=== PATIENT | male | born 1955 | race Caucasian/White ===

== ENCOUNTER 2020-05-02 17:20 | Emergency (ER) | payer MEDICAID, SELFPAY ==
[2020-05-02 17:47] VITALS: BMI 28.1
[2020-05-02 17:49] VITALS: BP 110/67; PULSE 93; RESP 18; TEMP 37.2; O2SAT 93
--- NOTE | 2020-05-02 18:00 | ED_ITS ---
HPI - General Adult General: Chief complaint: General Medical Stated complaint: VOMITING/HEADACHE Time Seen by Provider: 05/02/20 17:58 Source: patient Mode of arrival: ambulatory Limitations: no limitations History of Present Illness: HPI narrative: 64-year-old male patient comes in today with headache along with body aches and nausea since last night. Patient does report 2 episodes of emesis. Patient reports body aches. Patient does have a history of hypertension that he takes medication for. Patient appears mildly unwell. Patient denies any shortness of breath or chest pain. Associated symptoms: Reports headache(s), nausea and vomiting Review of Systems General: Reports: 10 or more systems reviewed and unremarkable except in HPI and below GI: Reports: nausea and vomiting Neuro: Reports: headache(s) Physical Exam Const: COMMON NORMALS: no acute distress and patient oriented x3 GENERAL APPEARANCE: cooperative HENMT: COMMON NORMALS: normocephalic, TM's normal bilaterally and Normal external nose present HEAD & SCALP: normal to inspection and normocephalic NOSE: Normal external nose present TYMPANIC MEMBRANE: TM's normal bilaterally MOUTH: Normal oral and palatal mucosa present THROAT: posterior oropharynx normal Eye: GENERAL EYE: appearance normal, both eyes and all related structures Neck/C-Spine: COMMON NORMALS: full ROM Lymph: LYMPHATIC: no lymphadenopathy noted Chest: COMMONS NORMALS: normal inspection of the chest Resp: COMMON NORMALS: normal respiratory effort EFFORT & INSPECTION: Yes able to speak in complete sentences Cardio: COMMON NORMALS: regular rate and regular rhythm RATE: regular rate RHYTHM: regular rhythm GI: COMMON NORMALS: Soft to palpation and non-tender PALPATION: Yes Soft to palpation : COMMON NORMALS: Yes no CVA tenderness BLADDER/KIDNEY EXAM: Yes no CVA tenderness Back/Pelvis: COMMON NORMALS: no CVA tenderness and thoracic and lumbar spine normal to inspection Extremity: COMMON NORMALS: normal to inspection and no pedal edema Neuro: COMMON NORMALS: patient oriented x3 and moves all extremities Psych: COMMON NORMALS: mental status grossly normal and cooperative Skin: COMMON NORMALS: no rashes or lesions noted GENERAL SKIN EXAM: no rashes or lesions noted Course Vital Signs: Vital signs: Vital Signs Temperature 99.0 F 05/02/20 17:49 Pulse Rate 82 05/02/20 19:51 Respiratory Rate 18 05/02/20 19:51 Blood Pressure 110/59 05/02/20 19:51 Pulse Oximetry 92 05/02/20 19:51 MDM - General Adult MDM Narrative: Medical decision making narrative: 64-year-old male comes in today with body aches, fever and chills for 2 days. Patient has been working out early in the morning and thinks that he might have become overheated. Patient appears well. Patient appears in no acute distress. Exam notes abdomen soft nontender. Lung sounds are clear. No edema is noted in the extremities. Vital signs are normal. Differential diagnosis includes but not limited to pneumonia, sepsis, urinary tract infection. CBC noted a white count of 21,000 with a neutropenia. CMP was normal without any abnormalities. Urinalysis was clear. Chest x-ray noted a nodule in the lung field that was suggestive of possible carcinoma with recommendations for CT scan. CT scan with contrast confirmed possible carcinoma. Troponin on initial draw was slightly elevated at 29 but at the 2-hour remained at 26 without any change. EKG noted no ST elevation. Reviewed exam with patient recommended treatment for tickborne illness. Tick panel was drawn and is outstanding. We will arrange for patient to follow-up with Dr. Grant for further evaluation relate an abnormal CT scan and biopsy of pulmonary nodule. Reviewed with patient who stated understanding agreed to plan. Lab Data: Labs: Lab Results 05/02/20 05/02/20 05/02/20 Range/Units 18:26 18:26 18:26 WBC 21.7 H (4.0-10.0) 10^3/ uL RBC 4.64 (4.1-5.3) 10^6/u L Hgb 13.3 (11.7-16.6) g/dL Hct 42.1 (42.0-52.0) % MCV 90.7 (80-94) fL MCH 28.7 (28.0-34.0) pg MCHC 31.6 (30.0-36.0) g/dL RDW 14.2 (12.1-15.1) % Plt Count 280 (130-400) 10^3/c mm MPV 10.2 (7.4-10.4) fL Neut % (Auto) 83.4 % Lymph % (Auto) 7.4 % [place] % (Auto) 8.0 % Eos % (Auto) 0.3 % Baso % (Auto) 0.4 % Neut # (Auto) 18.14 H (1.8-7.7) 10^3/u L Lymph # (Auto) 1.6 (0.8-4.8) 10^3/u L [place] # (Auto) 1.7 H (0.2-0.9) 10^3/u L Eos # (Auto) 0.1 (0.0-0.8) 10^3/u L Baso # (Auto) 0.1 (0.0-0.1) 10^3/u L Nucleated RBC % (a uto) 0 % Nucleated RBCs # 0.0 /100WBC Sodium 139 (136-145) mmol/L Potassium 4.2 (3.5-5.1) mmol/L Chloride 103 (98-107) mmol/L Carbon Dioxide 23 (22-29) mmol/L Anion Gap 17.2 (5-19) BUN 19 (8-23) mg/dL Creatinine 1.2 (0.7-1.2) mg/dL GFR Calculation 61.1 L (90-130) mL/min Glucose 135 H (65-115) mg/dL Calculated Osmolal ity 287 (285-295) mOsm/k g Lactic Acid 1.7 (0.5-2.2) mmol/L Calcium 9.7 (8.5-10.5) mg/dL Total Bilirubin 0.9 (0.15-1.2) mg/dL AST 13 (0-40) U/L ALT 16 (0-41) U/L Alkaline Phosphata se 91 (40-130) IU/L Troponin T Gen 5 n g/L (0-15) ng/L Troponin T 120 Min [place] (0-15) ng/L Total Protein 7.3 (6.6-8.7) g/dL Albumin 4.4 (3.5-5.2) g/dL Globulin 2.9 (1.3-4.6) g/dL Urine Color (Yellow) Urine Appearance (CLEAR) Urine pH (5-7) Ur Specific Gravit y (1.005-1.030) Urine Protein (Negative) Urine Glucose (UA) (Normal) Urine Ketones (Negative) Urine Blood (Negative) Urine Nitrate (Negative) Urine Bilirubin (NEGATIVE) Urine Urobilinogen (Negative) mg/dL Ur Leukocyte Shanda ase (Negative) 05/02/20 05/02/20 05/02/20 Range/Units 18:26 19:21 20:34 WBC (4.0-10.0) 10^3/ uL RBC (4.1-5.3) 10^6/u L Hgb (11.7-16.6) g/dL Hct (42.0-52.0) % MCV (80-94) fL MCH (28.0-34.0) pg MCHC (30.0-36.0) g/dL RDW (12.1-15.1) % Plt Count (130-400) 10^3/c mm MPV (7.4-10.4) fL Neut % (Auto) % Lymph % (Auto) % [place] % (Auto) % Eos % (Auto) % Baso % (Auto) % Neut # (Auto) (1.8-7.7) 10^3/u L Lymph # (Auto) (0.8-4.8) 10^3/u L [place] # (Auto) (0.2-0.9) 10^3/u L Eos # (Auto) (0.0-0.8) 10^3/u L Baso # (Auto) (0.0-0.1) 10^3/u L Nucleated RBC % (a uto) % Nucleated RBCs # /100WBC Sodium (136-145) mmol/L Potassium (3.5-5.1) mmol/L Chloride (98-107) mmol/L Carbon Dioxide (22-29) mmol/L Anion Gap (5-19) BUN (8-23) mg/dL Creatinine (0.7-1.2) mg/dL GFR Calculation (90-130) mL/min Glucose (65-115) mg/dL Calculated Osmolal ity (285-295) mOsm/k g Lactic Acid (0.5-2.2) mmol/L Calcium (8.5-10.5) mg/dL Total Bilirubin (0.15-1.2) mg/dL AST (0-40) U/L ALT (0-41) U/L Alkaline Phosphata se (40-130) IU/L Troponin T Gen 5 n g/L 29 H (0-15) ng/L Troponin T 120 Min [place] 27.82 H (0-15) ng/L Total Protein (6.6-8.7) g/dL Albumin (3.5-5.2) g/dL Globulin (1.3-4.6) g/dL Urine Color Yellow (Yellow) Urine Appearance Clear (CLEAR) Urine pH 5 (5-7) Ur Specific Gravit y 1.020 (1.005-1.030) Urine Protein Neg (Negative) Urine Glucose (UA) Norm (Normal) Urine Ketones 1+ H (Negative) Urine Blood Neg (Negative) Urine Nitrate Negative (Negative) Urine Bilirubin 1+ H (NEGATIVE) Urine Urobilinogen Norm (Negative) mg/dL Ur Leukocyte Shanda ase Negative (Negative) EKG Data^: EKG 1: Attestation: I personally reviewed and interpreted this EKG as follows: (185, sinus rhythm, regular rate at 86 bpm, no ST elevation, no ectopy, nonspecific T wave abnormality noted.) Computer generated interpretation: Chest X-Ray 05/02/20 18:06 IMPRESSION: Suspected pulmonary nodule right upper lobe with parenchymal stranding. Recommend computed tomography chest for further evaluation. ADDENDUM: 05/02/20 1908 THIS REPORT CONTAINS FINDINGS THAT MAY BE CRITICAL TO PATIENT CARE. The findings were verbally communicated via telephone conference with Richard Vargas at 7:07 PM CDT on 05/02/2020. The findings were acknowledged and understood. Head CT 05/02/20 18:07 IMPRESSION: No visible acute intracranial pathologic process. Radiation Dose CTDIVOL = (mGy): DLP = 860.26 (mGy-cm) Chest CT 05/02/20 18:41 IMPRESSION: 1. Within the apical segment of the right upper lobe is a spiculated lung mass measuring 24 mm x 16 mm x 23 mm. Associated adjacent peripheral parenchymal stranding. Concern for primary lung carcinoma. 2. Within the apical posterior segment of the left upper lobe is a discoid nodular scar focus with a nodular component measuring approximately 18 mm by 6 mm. This could simply represent atelectatic scar with the overall discoid atelectatic presentation; however, would recommend repeat CT of the chest in 3-6 months to re-evaluate to exclude a potential for scar carcinoma. 3. Advanced centrilobular emphysema. 4. Senile fibrosis. 5. Other nonurgent, nonemergent, chronic, and age related findings as discussed in text above. Radiation Dose CTDIVOL = (mGy): DLP = 767.01 (mGy-cm) Discharge Plan Discharge Patient Disposition: Home Clinical Impression: Abnormal x-ray of lungs with single pulmonary nodule Leukocytosis Qualifiers: Leukocytosis type: unspecified Qualified Code(s): D72.829 - Elevated white blood cell count, unspecified Condition: Stable Prescriptions: New doxycycline hyclate 100 mg capsule 100 mg PO BID 14 Days Qty: 28 RF: 0 Discharge Orders: Discharge Order (Routine); Ordered 05/02/20 Ordered By: Richard Vargas Referrals: Nisha Ventura DO [Primary Care Provider] - Discharge Diet: Usual diet Discharge Activity: Increase activity as tolerated Patient Instructions: Fever in Adults (ED) Activity Restrictions/Additional Instructions: Take antibiotic as directed. Drink plenty of fluids. Healthy diet and exercise. Follow-up with primary care in 1 week. Return to the ED for worsening symptoms. Case management will contact you regarding follow-up with Dr. Grant for biopsy relating abnormal CT scan. 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
--- NOTE | 2020-05-02 18:06 | ECG_ITS ---
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 Measurements Intervals [place] Rate: 86 P: 49 OR: 137 QRS: 52 QRSD: 100 T: 24 QT: 376 QTc: 451 Interpretive Statements SINUS RHYTHM NONSPECIFIC T-WAVE ABNORMALITY Compared to ECG 10/09/2015 20:29:13 T-wave abnormality now present Electronically Signed On 05-03-2020 12:42:08 CDT by Alia Moore M.D. [id number]
--- NOTE | 2020-05-02 18:06 | XRR_ITS ---
PROCEDURE INFORMATION: Exam: XR Chest, 1 View Exam date and time: 05/02/2020 6:07 PM Age: 64 years old Clinical indication: Other: Weakness TECHNIQUE: Imaging protocol: XR of the chest Views: 1 view. COMPARISON: CR Chest 1 [place] [id number] 10/09/2015 8:08 PM FINDINGS: Lungs: Suspected pulmonary nodule right upper lobe with parenchymal stranding. Recommend computed tomography chest for further evaluation. Suspected underlying COPD/chronic bronchitis/emphysema. Mild senile fibrosis. Pleural space: Unremarkable. No pleural effusion. No pneumothorax. Heart/Mediastinum: Cardiac structures in configuration unremarkable. Bones/joints: Unremarkable. XR/XR chest 1V portable [id number] IMPRESSION: Suspected pulmonary nodule right upper lobe with parenchymal stranding. Recommend computed tomography chest for further evaluation.
--- NOTE | 2020-05-02 18:07 | CTR_ITS ---
PROCEDURE INFORMATION: Exam: CT Head Without Contrast Exam date and time: 05/02/2020 6:08 PM Age: 64 years old Clinical indication: Pain; Headache not specified; Patient HX: C/O frontal GOINS w n/v; Additional info: Headache, n/v TECHNIQUE: Imaging protocol: Computed tomography of the head without contrast. Radiation optimization: All CT scans at this facility use at least one of these dose optimization techniques: automated exposure control; mA and/or kV adjustment per patient size (includes targeted exams where dose is matched to clinical indication); or iterative reconstruction. COMPARISON: No relevant prior studies available. RADIATION DOSE METRICS: Total DLP (mGy-cm): 860.26 FINDINGS: Brain: No visible acute intracranial pathologic process, trauma, or hemorrhage. No generalized edema or demyelination. Unremarkable white matter. No mass effect. Ventricles: Normal. No ventriculomegaly. Bones/joints: Unremarkable. No acute fracture. Sinuses: No visible active paranasal sinus disease. Mild chronic frontal, ethmoid, and maxillary sinusitis with minimal mucosal thickening. Mastoid air cells: Visualized mastoid air cells are well aerated. Soft tissues: Unremarkable. CT/CT head wo con* [id number] IMPRESSION: No visible acute intracranial pathologic process. Radiation Dose CTDIVOL = (mGy): DLP = 860.26 (mGy-cm)
--- NOTE | 2020-05-02 18:41 | CTR_ITS ---
PROCEDURE INFORMATION: Exam: CT Chest With Contrast Exam date and time: 05/02/2020 7:24 PM Age: 64 years old Clinical indication: Abnormal findings; Lung mass or nodule; Single or solitary nodule; Patient HX: Abn cxr; Additional info: Abnormal chest xray TECHNIQUE: Imaging protocol: Computed tomography of the chest with intravenous contrast. Radiation optimization: All CT scans at this facility use at least one of these dose optimization techniques: automated exposure control; mA and/or kV adjustment per patient size (includes targeted exams where dose is matched to clinical indication); or iterative reconstruction. Contrast material: OMNI 300; Contrast volume: 95 ml; Contrast route: INTRAVENOUS (IV); COMPARISON: CR XR chest 1V portable [id number] 05/02/2020 6:12 PM RADIATION DOSE METRICS: Total DLP (mGy-cm): 767.01 FINDINGS: Lungs: Within the apical segment of the right upper lobe is a spiculated lung mass measuring 24 mm x 16 mm x 23 mm. Associated adjacent peripheral parenchymal stranding. Concern for primary lung carcinoma. Within the apical posterior segment of the left upper lobe is a discoid nodular scar focus with a nodular component measuring approximately 18 mm by 6 mm. This could simply represent atelectatic scar with the overall discoid atelectatic presentation; however, would recommend repeat CT of the chest in 3-6 months to re-evaluate to exclude a potential for scar carcinoma. Advanced centrilobular emphysema. Senile fibrosis. Pleural space: Unremarkable. No pneumothorax. No pleural effusion. Heart: Cardiac structures and configuration reveal coronary artery disease. No visible pericardial effusion. Aorta: The thoracic aorta is nonaneurysmal. Moderate arterial sclerotic disease. Lymph nodes: Currently no visible evidence of active mediastinal or hilar lymphadenopathy. The most prominent pretracheal middle mediastinal lymph node measures less than 6 mm in the short axis. Adrenals: Adrenal glands within the field of view unremarkable. Remainder of the upper abdominal contents within the field of view without visible evidence of active pathologic process. Bones/joints: Age-appropriate degenerative disease. No visible osteolytic or osteoblastic destructive process. Soft tissues: Unremarkable for age. CT/CT chest w con* [id number] IMPRESSION: 1. Within the apical segment of the right upper lobe is a spiculated lung mass measuring 24 mm x 16 mm x 23 mm. Associated adjacent peripheral parenchymal stranding. Concern for primary lung carcinoma. 2. Within the apical posterior segment of the left upper lobe is a discoid nodular scar focus with a nodular component measuring approximately 18 mm by 6 mm. This could simply represent atelectatic scar with the overall discoid atelectatic presentation; however, would recommend repeat CT of the chest in 3-6 months to re-evaluate to exclude a potential for scar carcinoma. 3. Advanced centrilobular emphysema. 4. Senile fibrosis. 5. Other nonurgent, nonemergent, chronic, and age related findings as discussed in text above. Radiation Dose CTDIVOL = (mGy): DLP = 767.01 (mGy-cm)
[2020-05-02] MEDS: sodium chloride 0.9% 500 ML 999 ML IV (18:47)
[2020-05-02 18:53] LABS: Basophils # 0.1 10^3/uL (0.0-0.1); Basophils % 0.4 %; Eosinophils # 0.1 10^3/uL (0.0-0.8); Eosinophils % 0.3 %; Hematocrit 42.1 % (42.0-52.0); Hemoglobin 13.3 g/dL (11.7-16.6); Lymphocytes # 1.6 10^3/uL (0.8-4.8); Lymphocytes % 7.4 %; Mean Corpuscular HGB Conc 31.6 g/dL (30.0-36.0); Mean Corpuscular Hemoglobin 28.7 pg (28.0-34.0); Mean Corpuscular Volume 90.7 fL (80-94); Mean Platelet Volume 10.2 fL (7.4-10.4); Monocytes # 1.7 10^3/uL (0.2-0.9); Neutrophils # 18.14 10^3/uL (1.8-7.7); Neutrophils % 83.4 %; Nucleated Red Blood Cells % 0 %; Platelet Count 280 10^3/cmm (130-400); Red Blood Count 4.64 10^6/uL (4.1-5.3); Red Cell Distribution Width 14.2 % (12.1-15.1); White Blood Count 21.7 10^3/uL (4.0-10.0)
[2020-05-02 19:05] LABS: Lactic Sepsis W/Reflex 1.7 mmol/L (0.5-2.2)
[2020-05-02 19:09] LABS: Alanine Aminotransferase 16 U/L (0-41); Albumin Level 4.4 g/dL (3.5-5.2); Alkaline Phosphatase 91 IU/L (40-130); Anion Gap 17.2 (5-19); Aspartate Amino Transferase 13 U/L (0-40); Blood Urea Nitrogen 19 mg/dL (8-23); Calcium 9.7 mg/dL (8.5-10.5); Carbon Dioxide 23 mmol/L (22-29); Chloride 103 mmol/L (98-107); Globulin 2.9 g/dL (1.3-4.6); Glomerular Filtration Rate 61.1 mL/min (90-130); Glucose 135 mg/dL (65-115); Osmolality Calculated 287 mOsm/kg (285-295); Potassium 4.2 mmol/L (3.5-5.1); Sodium 139 mmol/L (136-145); Total Bilirubin 0.9 mg/dL (0.15-1.2); Total Protein 7.3 g/dL (6.6-8.7)
[2020-05-02 19:11] LABS: Troponin T (5th) Once 29 ng/L (0-15)
[2020-05-02] MEDS: iohexol 300 mg/mL 100 mL Btl IV (19:26)
[2020-05-02 19:50] LABS: Add Urine Microscopic? NO
[2020-05-02 19:51] VITALS: BP 110/59; PULSE 82; RESP 18; O2SAT 92
[2020-05-02 19:52] LABS: Bilirubin Urine 1+ (NEGATIVE); Blood Urine Neg (Negative); Glucose Urine UA Norm (Normal); Ketones Urine 1+ (Negative); Leukocyte Esterase Urine Negative (Negative); Nitrate Urine Negative (Negative); Protein Urine Neg (Negative); Urine Appearance Clear (CLEAR); Urine Color Yellow (Yellow); Urobilinogen Urine Norm (Negative); pH Urine 5 (5-7)
--- NOTE | 2020-05-02 20:00 | ECG_ITS ---
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 Measurements Intervals [place] Rate: 76 P: 66 [place]: 144 QRS: 59 QRSD: 101 T: 50 QT: 390 QTc: 439 Interpretive Statements SINUS RHYTHM WITH OCCASIONAL VENTRICULAR PREMATURE COMPLEXES NONSPECIFIC T-WAVE ABNORMALITY Compared to ECG 05/02/2020 18:53:09 Ventricular premature complex(es) now present T-wave abnormality still present Electronically Signed On 05-03-2020 12:50:52 CDT by Alia Moore M.D. [id number]
[2020-05-02] MEDS: doxycycline 100 mg Tablet PO (20:26)
--- NOTE | 2020-05-02 20:37 | PC.NURSE ---
EKG done at 2034 and shown to ER physician
[2020-05-02 20:55] LABS: Troponin 5 2HR 27.82 ng/L (0-15)
[2020-05-02 21:09] VITALS: BP 117/50; PULSE 72; RESP 16; O2SAT 94
[2020-05-02 21:32] LABS: Troponin 5 2HR Delta -1.18 ABS# (0-10)
--- NOTE | 2020-05-04 09:54 | PC.SOCIAL ---
Spoke with Meredith at [facility] regarding referral from ED for Dr Lawler regarding lung nodule on CT scan. She will review and follow up with patient.
[2020-05-05 15:20] LABS: Lyme AB IGG, Blot NEGATIVE (NEGATIVE)
[2020-05-06 17:01] LABS: E. Chaffeensis AB IGG <1:64; E. Chaffeensis AB IGM <1:20
[2020-05-06 17:29] LABS: RMSF IGG NOT DETECTED; RMSF IGM NOT DETECTED
--- NOTE | 2020-05-13 10:34 | DCPLANNER ---
Patient had a follow up appointment scheduled for 05.12.20 at 2:[address] Greenberg. Patient did attend the appointment.
== END 2020-05-02 21:13 | disposition home or self-care (01) ==
PROVIDERS: Emergency Provider Nurse Practitioner Family; PCP Family Medicine
DX: D72.829 Elevated white blood cell count, unspecified (principal); R91.1 Solitary pulmonary nodule
CPT/HCPCS: 12345; 36415; 70450; 71045; 71260; 80053; 81003; 83605; 84484; 85025; 86618; 86666; 86757; 87040; 93005; 96360; 99283; 99284; J7040; Q9967

== ENCOUNTER 2020-05-14 05:54 | Emergency (ER) | payer MEDICAID, SELFPAY ==
[2020-05-14 06:00] VITALS: BP 142/106; PULSE 78; RESP 22; TEMP 36.8; O2SAT 94; BMI 27.3
--- NOTE | 2020-05-14 06:12 | XRR_ITS ---
PROCEDURE INFORMATION: Exam: XR Chest, 1 View Exam date and time: 05/14/2020 6:29 AM Age: 64 years old Clinical indication: Cough; Additional info: Cough, being treated for pneumonia TECHNIQUE: Imaging protocol: XR of the chest Views: 1 view. COMPARISON: CT chest w con* [id number] 05/02/2020 7:17 PM FINDINGS: Lungs: Severe emphysema right apex greater than left.Severe emphysema in the right mid lung and right upper lobe. Mild fibrotic changes superiorly and laterally. Subtle nodular densities right upper lobe. Correlate regarding known history. Pleural space: Unremarkable. No pleural effusion. No pneumothorax. Heart/Mediastinum: Unremarkable. No cardiomegaly. Bones/joints: Unremarkable. XR/XR chest 1V portable [id number] IMPRESSION: Severe emphysema right apex greater than left.Severe emphysema in the right mid lung and right upper lobe. Mild fibrotic changes superiorly and laterally. Subtle nodular densities right upper lobe. Correlate regarding known history.
--- NOTE | 2020-05-14 06:16 | W.ED.SOB ---
HPI - SOB/Dyspnea General: Chief Complaint: Shortness of Breath/Dyspnea Stated Complaint: SOB Time Seen by Provider: 05/14/20 06:01 History of Present Illness: HPI Narrative: This patient is a 64-year-old male presenting with shortness of breath and cough. He has a history of COPD and uses oxygen at night. He also has nebulizers at home. He said neither of those are helping. He was seen here last week and diagnosed with pneumonia by his report. He also was found to have a spiculated nodule very concerning for carcinoma. He had a white count of 21,000 and had a tick panel sent. He since followed up with his doctor and the doxycycline that he had initially been put on was changed to Levaquin which she started on Monday. He comes in today mainly for cough. He has not had fevers. He said for the last 2 hours he is just been coughing without relief. MD elicited complaint: shortness of breath and cough Pertinent past history: COPD and pneumonia Onset (ago): week(s) (1) Context: recent illness Timing: constant Severity: moderate Exacerbating factors: nothing Relieving factors: nothing Known history of: COPD Associated symptoms: Reports cough; Deny abdominal pain, chest pain, fever(s), nausea or vomiting Review of Systems General: Reports: 10 or more systems reviewed and unremarkable except in HPI and below Const: Denies: fever(s), chills, fatigue or malaise Eyes: Denies: change in vision ENMT: Denies: odynophagia Card: Denies: chest pain Resp: Reports: dyspnea and productive cough; Denies: non-productive cough GI: Denies: abdominal pain, nausea or vomiting : Denies: flank pain Musc: Denies: neck pain or back pain Skin/Breast: Denies: rash Neuro: Denies: headache(s), numbness in extremities or weakness in extremities Ramone/Lymph: Denies: easy bruising or easy bleeding PFSH ED PFSH: Medical History COPD (chronic obstructive pulmonary disease) Lung mass Family History Grandmother Stroke Other Hypertension Social History Smoking and tobacco status: former smoker Quit status (tobacco): has quit using tobacco Year quit tobacco: 2017 - 2 PPD x 50 Years Second hand smoke exposure: No Alcohol intake: never Lives independently: Yes Household members: spouse Marital status: Current occupational status: retired and disabled History of recent travel: No Current gender identity: Male Physical Exam Const: COMMON NORMALS: no acute distress, patient oriented x3, no limitations and alert GENERAL APPEARANCE: cooperative and comfortable HENMT: HEAD & SCALP: normal to inspection FACE & SINUS: normal facial exam Eye: GENERAL EYE: appearance normal, both eyes and all related structures Neck/C-Spine: COMMON NORMALS: supple, no meningeal signs and no JVD Chest: COMMONS NORMALS: normal inspection of the chest Resp: COMMON NORMALS: normal respiratory effort and No use of accessory muscles AUSCULTATION: crackles (Bases) Laterality: bilateral Cardio: COMMON NORMALS: no JVD, regular rate, regular rhythm and No murmurs present (Cardio) RATE: regular rate RHYTHM: regular rhythm GI: COMMON NORMALS: Normal to inspection, nondistended, normoactive bowel sounds present, Soft to palpation and non-tender INSPECTION: Yes normal to inspection AUSCULTATION: Yes normoactive bowel sounds PALPATION: Yes Soft to palpation Back/Pelvis: COMMON NORMALS: thoracic and lumbar spine normal to inspection Extremity: COMMON NORMALS: normal to inspection Neuro: COMMON NORMALS: patient oriented x3, moves all extremities, no focal motor deficits and no sensory deficits noted SENSORIUM/ORIENTATION: Yes alert MENINGEAL SIGNS: Yes no meningeal signs Psych: COMMON NORMALS: mental status grossly normal, cooperative and normal affect Skin: COMMON NORMALS: no rashes or lesions noted and turgor normal GENERAL SKIN EXAM: no rashes or lesions noted and turgor normal Course ED course: Patient had good relief from his cough with the Tessalon Perle. His take panel was positive for Lyme disease and I discussed this with him. He is still taking the doxycycline in addition to Levaquin. Encouraged him to finish that up and to talk to Dr. Ventura, his PCP, about the positive test. Vital Signs: Vital signs: Vital Signs Temperature 98.6 F 05/14/20 08:17 Pulse Rate 70 05/14/20 08:17 Respiratory Rate 18 05/14/20 08:17 Blood Pressure 144/80 05/14/20 08:17 Pulse Oximetry 94 05/14/20 08:17 MDM - SOB/Dyspnea Medical Records: Attestation: I reviewed the patient's medical records. Medical records narrative: On recent visit patient had spiculated lung mass and was instructed to follow-up with Dr. Grant. Additionally his tick panel came back positive for Lyme disease. Lab Data: Labs: Lab Results 05/14/20 05/14/20 Range/Units 06:52 06:52 WBC 11.9 H (4.0-10.0) 10^3/ uL RBC 4.36 (4.1-5.3) 10^6/u L Hgb 12.0 (11.7-16.6) g/dL Hct 39.1 L (42.0-52.0) % MCV 89.7 (80-94) fL MCH 27.5 L (28.0-34.0) pg MCHC 30.7 (30.0-36.0) g/dL RDW 13.2 (12.1-15.1) % Plt Count 311 (130-400) 10^3/c mm MPV 9.8 (7.4-10.4) fL Neut % (Auto) 74.5 % Lymph % (Auto) 14.0 % Coleman % (Auto) 6.7 % Eos % (Auto) 3.3 % Baso % (Auto) 0.5 % Neut # (Auto) 8.85 H (1.8-7.7) 10^3/u L Lymph # (Auto) 1.7 (0.8-4.8) 10^3/u L Coleman # (Auto) 0.8 (0.2-0.9) 10^3/u L Eos # (Auto) 0.4 (0.0-0.8) 10^3/u L Baso # (Auto) 0.1 (0.0-0.1) 10^3/u L Nucleated RBC % (a uto) 0 % Nucleated RBCs # 0.0 /100WBC Sodium 140 (136-145) mmol/L Potassium 5.2 H (3.5-5.1) mmol/L Chloride 106 (98-107) mmol/L Carbon Dioxide 27 (22-29) mmol/L Anion Gap 12.2 (5-19) BUN 18 (8-23) mg/dL Creatinine 1.0 (0.7-1.2) mg/dL GFR Calculation 75.5 L (90-130) mL/min Glucose 105 (65-115) mg/dL Calculated Osmolal ity 287 (285-295) mOsm/k g Calcium 9.6 (8.5-10.5) mg/dL Total Bilirubin 0.4 (0.15-1.2) mg/dL AST 23 (0-40) U/L ALT 30 (0-41) U/L Alkaline Phosphata se 96 (40-130) IU/L Total Protein 6.8 (6.6-8.7) g/dL Albumin 3.6 (3.5-5.2) g/dL Globulin 3.2 (1.3-4.6) g/dL Discharge Plan Discharge Patient Disposition: Home Clinical Impression: Cough Tick bite Qualifiers: Encounter type: subsequent encounter Qualified Code(s): W57.XXXD - Bitten or stung by nonvenomous insect and other nonvenomous arthropods, subsequent encounter Condition: Stable Prescriptions: New Tessalon Perles 100 mg capsule 100 mg PO Q6H PRN (Reason: cough) Qty: 30 RF: 0 No Action fluticasone propion-salmeterol [Advair Diskus] 500-50 mcg/dose blister with device 1 inh INHALATION BID RF: 0 albuterol sulfate [ProAir HFA] 90 mcg/actuation HFA aerosol inhaler 2 puff INHALATION Q6H PRNRF: 0 alprazolam [Xanax] 1 mg tablet 1 mg PO TID PRNRF: 0 simvastatin [Zocor] 10 mg tablet 10 mg PO DAILY RF: 0 bupropion HCl [Wellbutrin SR] 150 mg tablet sustained-release 12 hr 150 mg PO BID RF: 0 cetirizine [Zyrtec] 10 mg tablet 10 mg PO DAILY RF: 0 fluticasone propionate [Flonase Allergy Relief] 50 mcg/actuation spray,suspension 2 spray INTRANASAL DAILY RF: 0 lisinopril [Prinivil] 10 mg tablet 10 mg PO DAILY RF: 0 tamsulosin [Flomax] 0.4 mg capsule 0.4 mg PO DAILY RF: 0 montelukast [Singulair] 10 mg tablet 10 mg PO DAILY RF: 0 ranitidine HCl 150 mg tablet 150 mg PO BID RF: 0 aripiprazole [Abilify] 5 mg tablet 5 mg PO DAILY RF: 0 hydrocodone-acetaminophen [Oxford] 10-325 mg tablet 1 tab PO Q6H PRNRF: 0 albuterol sulfate 2.5 mg /3 mL (0.083 %) solution for nebulization 2.5 mg INHALATION Q4H PRNRF: 0 ipratropium bromide 0.02 % solution 0.5 mg INHALATION Q6H RF: 0 Incruse Ellipta 62.5 mcg/actuation blister with device 1 inh INHALATION DAILY RF: 0 Mucinex DM 30-600 mg tablet extended release 12 hr 1 tab PO Q12H RF: 0 docusate sodium [Dulcolax Stool Softener (dss)] 100 mg capsule 100 mg PO DAILY PRNRF: 0 doxycycline hyclate 100 mg capsule 100 mg PO BID 14 Days Qty: 28 RF: 0 Discharge Orders: Discharge Order (Routine); Ordered 05/14/20 Ordered By: Valeri Medina Referrals: Nisha Ventura DO [Primary Care Provider] - Discharge Diet: Usual diet Discharge Activity: Resume usual activity Patient Instructions: Lyme Disease (ED) Activity Restrictions/Additional Instructions: Continue both antibiotics and follow up with Dr. Ventura. Discharge Date/Time: 05/14/20 08:22 Coding Level of Care Code ED Molding Line Operator for Devendra Fwd Exam Comprehensive
[2020-05-14] MEDS: benzonatate 100 mg Capsule PO (06:48)
[2020-05-14 06:59] VITALS: BP 160/88; PULSE 92; RESP 16; O2SAT 96
[2020-05-14 07:04] LABS: Basophils # 0.1 10^3/uL (0.0-0.1); Basophils % 0.5 %; Eosinophils # 0.4 10^3/uL (0.0-0.8); Eosinophils % 3.3 %; Hematocrit 39.1 % (42.0-52.0); Lymphocytes # 1.7 10^3/uL (0.8-4.8); Mean Corpuscular HGB Conc 30.7 g/dL (30.0-36.0); Mean Corpuscular Hemoglobin 27.5 pg (28.0-34.0); Mean Corpuscular Volume 89.7 fL (80-94); Mean Platelet Volume 9.8 fL (7.4-10.4); Monocytes # 0.8 10^3/uL (0.2-0.9); Monocytes % 6.7 %; Neutrophils # 8.85 10^3/uL (1.8-7.7); Neutrophils % 74.5 %; Nucleated Red Blood Cells % 0 %; Platelet Count 311 10^3/cmm (130-400); Red Blood Count 4.36 10^6/uL (4.1-5.3); Red Cell Distribution Width 13.2 % (12.1-15.1); White Blood Count 11.9 10^3/uL (4.0-10.0)
[2020-05-14 07:06] VITALS: BP 160/88; PULSE 92; RESP 16; O2SAT 96
[2020-05-14 07:21] LABS: Alanine Aminotransferase 30 U/L (0-41); Albumin Level 3.6 g/dL (3.5-5.2); Alkaline Phosphatase 96 IU/L (40-130); Anion Gap 12.2 (5-19); Aspartate Amino Transferase 23 U/L (0-40); Blood Urea Nitrogen 18 mg/dL (8-23); Calcium 9.6 mg/dL (8.5-10.5); Carbon Dioxide 27 mmol/L (22-29); Chloride 106 mmol/L (98-107); Globulin 3.2 g/dL (1.3-4.6); Glomerular Filtration Rate 75.5 mL/min (90-130); Glucose 105 mg/dL (65-115); Osmolality Calculated 287 mOsm/kg (285-295); Potassium 5.2 mmol/L (3.5-5.1); Sodium 140 mmol/L (136-145); Total Bilirubin 0.4 mg/dL (0.15-1.2); Total Protein 6.8 g/dL (6.6-8.7)
[2020-05-14 08:17] VITALS: BP 144/80; PULSE 70; RESP 18; TEMP 37; O2SAT 94
== END 2020-05-14 08:22 | disposition home or self-care (01) ==
PROVIDERS: Emergency Provider Emergency Medicine; PCP Family Medicine
DX: R05 Cough (principal); T14.8XXA Other injury of unspecified body region, initial encounter; W57.XXXA Bitten or stung by nonvenomous insect and other nonvenomous arthropods, initial encounter; J44.9 Chronic obstructive pulmonary disease, unspecified; Z87.891 Personal history of nicotine dependence
CPT/HCPCS: 12345; 71045; 80053; 85025; 99281; 99283

== ENCOUNTER → 2020-05-22 05:53 | Day surgery (SDC) | payer MEDICAID, SELFPAY ==
[2020-05-21 10:15] VITALS: BMI 27.3
[2020-05-22 06:49] LABS: SARS Covid-2 Antigen Positive (Negative)
--- NOTE | 2020-05-22 08:05 | PC.NURSE ---
0755- PT TESTED WITH RAPID COVID 19 TEST IN OPS. TEST RESULTED POSITIVE. DR ALEXANDER INFORMED PT. PT DISCHARGED WITH WRITTEN INSTRUCTIONS ON QUARANTINE AND CARE IF SYMPTOMS OCCUR. ALSO HAD A WRITTEN NOTE FROM DR ALEXANDER FOR NEED TO QUARANTINE. SURGERY CANCELED.
== END ==
PROVIDERS: Internal Medicine Critical Care Medicine; PCP Family Medicine; Visit Provider Internal Medicine Pulmonary Disease
DX: U07.1 COVID-19 (principal); R91.8 Other nonspecific abnormal finding of lung field; Z53.9 Procedure and treatment not carried out, unspecified reason
CPT/HCPCS: 87426

== ENCOUNTER 2020-06-26 05:48 | Day surgery (SDC) | payer MEDICAID, SELFPAY ==
[2020-06-25 13:29] VITALS: BMI 27.7
[2020-06-26] VITALS (7 sets, daily range): BP systolic 115–134; BP diastolic 65–88; PULSE 64–79; RESP 11–21; TEMP 36.1–36.6; O2SAT 92–100
--- NOTE | 2020-06-26 | CT_ITS ---
Guided Bronchoscopy Planning CT images; total exam DLP: 849.57 mGy-cm MTDD
[2020-06-26] MEDS: sodium chloride 0.9% 1,000 ML 30 ML IV (06:19)
--- NOTE | 2020-06-26 06:28 | ANES.PREANE2 ---
Pre-Anesthetic Assessment Pre-Anesthetic Assessment: Height/Weight: Height 1.74 m Weight 83.915 kg Temp Pulse Resp BP Pulse Ox 97.8 F 64 20 H 134/66 98 06/26/20 06:01 06/26/20 06:01 06/26/20 06:01 06/26/20 06:01 06/26/20 06:01 Preop Diagnosis: Suspected lung cancer Proposed Procedure: Operation Date: 06/26/20 07:00 Proposed Procedures p Ebus(Not Applicable) - Estrella Douglas MD s Veran(Not Applicable) - Estrella Douglas MD Familial anesthetic complications: None Was Beta Iam taken within 24 hours: N/A Last intake: Intake Last Liquid Date 06/25/20 Last Liquid Time 17:00 Last Solid Date 06/25/20 Last Solid Time 17:00 Social: Social History: No alcohol and No tobacco Comment: former smoker Exam: Pre-Anes Outpt Exam: alert, oriented x 3, clear to auscultation bilaterally and regular rate & rhythm Airway: Cervical ROM: WNL MP: 3 Dentition: Full Pulmonary: Pulmonary: COPD (2 L NC prn) and Cough Comments: spiculated R upper lung mass CV/HEM: CV/HEM: HTN Metabolic: Metabolic: Hyperlipidemia Anesthetic Plan: ASA status: 3 Anesthesia: General Risk of > 500 ml blood loss (7ml/kg in children): No Meds/Allergies Current Medications: Current Medications Generic Name Dose Route Start Last Admin Trade Name Freq PRN Reason Stop Dose Admin Sodium Chloride 1,000 mls @ 30 ml s/hr 06/26/20 06:00 06/26/20 06:19 Sodium Chloride 0.9% IV 06/27/20 05:59 30 mls/hr .Q24H BELA Administration PFSH Anesthesia PFSH: Medical History (Updated 05/22/20 @ 00:06 by ) COPD (chronic obstructive pulmonary disease) Lung mass Family History Grandmother Stroke Other Hypertension Social History Smoking and tobacco status: former smoker Quit status (tobacco): has quit using tobacco Year quit tobacco: 2017 - PPD x 50 Years Second hand smoke exposure: No Alcohol intake: never Lives independently: Yes Household members: spouse Marital status: Current occupational status: retired and disabled History of recent travel: No Current gender identity: Male Data Anesthesia Cardiac Studies: No Data to Display
--- NOTE | 2020-06-26 06:48 | W.PM.OPSFHP ---
Same Day Surgery H&P Indication for Procedure/HPI DATE OF PROCEDURE: June 26, 2020 CHIEF COMPLAINT/INDICATIONFOR SURGICAL PROCEDURE: This is a 64-year-old gentleman coming in for bronchoscopic evaluation for suspected lung cancer. The patient presented to the emergency department on May 02 and had undergone a chest x-ray as a part of regular evaluation. The chest x-ray revealed a likely lesion in the right upper lobe. This was followed up by CT scan of the chest. The CT chest revealed a 2.4 x 1.6 x 2.3 cm spiculated lung mass in the apical segment of the right upper lobe. There was tethering of the pleural surface. There is also another nodular lesion in the left upper lobe. The patient underwent a PET scan which revealed hypermetabolic activity in both of the lesions as well as right paratracheal lymph node involvement. The patient is following up with Dr. Greenberg. I have explained the procedure to the patient in detail including the risk involving bleeding, pneumothorax in addition to other more life-threatening complications. I have answered all of patient's questions. The patient is scheduled to undergo bronchoscopy with endobronchial sound guided transbronchial aspiration of lymph node and navigational bronchoscopy guided sampling of the right upper lobe lesion The patient has COPD, ex-smoker, quit in 2016. Significant evidence of centrilobular and paraseptal emphysema on the CT scan which would increase the risk of pneumothorax following transbronchial lung biopsies. Patient was scheduled for the bronchoscopy procedure in May however the preoperative COVID testing was positive and the procedure was postponed. PREOP DIAGNOSIS: Suspected lung cancer PLANNED PROCEDRUE: Bronchoscopy with inspection of the airway, navigational bronchoscopy guided transbronchial lung biopsy, fine-needle aspiration, Cytobrush and of the right upper lobe lung lesion, endobronchial ultrasound-guided transbronchial needle aspiration of lymph nodes Operation Date: 06/26/20 07:00 Proposed Procedures p Ebus(Not Applicable) - Estrella Douglas MD s Veran(Not Applicable) - Estrella Douglas MD Medications/Allergies* Home Medications Medication Instructions Recorded Confirmed Type albuterol sulfate 2.5 mg INHALATION Q4H PRN 05/12/20 06/26/20 History albuterol sulfate 90 mcg/actuation 2 puff INHALATION Q6H PRN 05/12/20 06/26/20 History aerosol inhaler alprazolam 1 mg tablet 1 mg PO TID PRN 05/12/20 06/26/20 History aripiprazole 5 mg tablet 5 mg PO DAILY 05/12/20 06/26/20 History bupropion HCl 150 mg tablet,12 hr 150 mg PO BID 05/12/20 06/26/20 History sustained-release cetirizine 10 mg tablet 10 mg PO DAILY 05/12/20 06/26/20 History dextromethorphan-guaifenesin 30 1 tab PO Q12H 05/12/20 06/25/20 History mg-600 mg tablet extended [id number] hr fluticasone 500 mcg-salmeterol 50 1 inh INHALATION BID 05/12/20 06/26/20 History mcg/dose blistr powdr for inhalation hydrocodone 10 mg-acetaminophen 1 tab PO Q6H PRN 05/12/20 06/26/20 History 325 mg tablet ipratropium bromide 0.02 % 0.5 mg INHALATION Q6H 05/12/20 06/26/20 History solution for inhalation lisinopril 10 mg tablet 10 mg PO DAILY 05/12/20 06/26/20 History montelukast 10 mg tablet 10 mg PO DAILY 05/12/20 06/26/20 History simvastatin 10 mg tablet 10 mg PO DAILY 05/12/20 06/26/20 History tamsulosin 0.4 mg capsule 0.4 mg PO DAILY 05/12/20 06/26/20 History Allergies/Adverse Reactions Allergy/AdvReac Type Severity Reaction Status Date / Time aspirin Allergy Severe ADR-Cramping Verified 06/25/20 13:35 of the Muscles Current Medications: Generic Name Dose Route Start Last Admin Trade Name Freq PRN Reason Stop Dose Admin Sodium Chloride 1,000 mls @ 30 mls/hr 06/26/20 06:00 06/26/20 06:19 Sodium Chloride 0.9% IV 06/27/20 05:59 30 mls/hr .Q24H BELA Administration Pertinent History/Comorbid Conditions* Medical History (Updated 05/22/20 @ 00:06 by ) COPD (chronic obstructive pulmonary disease) Lung mass Family History (Updated 05/12/20 @ 13:25 by Vero Chatman LPN) Hypertension Stroke Grandmother Social History Smoking and tobacco status: former smoker Quit status (tobacco): has quit using tobacco Year quit tobacco: 2017 - 2 PPD x 50 Years Second hand smoke exposure: No Alcohol intake: never Lives independently: Yes Household members: spouse Marital status: Current occupational status: retired and disabled History of recent travel: No Current gender identity: Male Pertinent Exam Findings alert, oriented x 3, clear to auscultation bilaterally and regular rate & rhythm Recommendations Surgery/Procedure today Coding Level of Care Code Acute Machine Or Machinery Mechanic for Devendra Mitchell
[2020-06-26] MEDS: lidocaine 1% INJ 20 mL XX (07:25)
--- NOTE | 2020-06-26 08:50 | PTH.EBUS ---
Endobronchial Ultrasound Specimen(s): Right upper lobe (A) and Lymph node 4R (B) Preliminary Impression: A. Lung, right upper lobe, fine needle aspiration, biopsy: - Negative for malignancy. - Peripheral blood elements. B. Lymph node, 4R, fine needle aspiration, biopsy: - Negative for malignancy. - Peripheral blood elements. - Specimen Information Pathologist: Benjamín Israel Date: 06/26/20 Specimen reported at what time: 08:30 - Clinician Specimen collection time: 08:00 Clinician reported to: Bebeto Greenberg (Slides were read in the frozen section room.)
--- NOTE | 2020-06-26 08:53 | PM.OP ---
Operative Report Date of procedure: June 26, 2020 Pre-op Diagnosis: Suspected lung cancer Post-op diagnosis: same Brief History: 63-year-old gentleman coming in for bronchoscopic evaluation for suspected lung cancer. Procedure: Name of the procedure: Bronchoscopy with inspection of the airway, bronchoalveolar lavage, transbronchial biopsies under navigational bronchoscopy, fine-needle aspiration under navigational bronchoscopy and triple needle brush, endobronchial ultrasound-guided transbronchial needle aspiration of lymph nodes and control of bleeding. Indication: Suspected lung cancer in the right upper lobe Anesthesia: General anesthesia. Local anesthesia: The felisha in the right and left mainstem bronchi were anesthetized with 1% lidocaine, 3 mL. Description of the procedure: The procedure was explained to the patient and the consent was obtained. The patient was brought to the OR. The patient underwent endotracheal intubation for general anesthesia. Following induction of general anesthesia, the bronchoscope was advanced through the ET tube. The lower trachea appeared to be normal. The felisha was sharp. The felisha, the right and left mainstem bronchi are anesthetized with 1% lidocaine. In a systematic manner bilateral bronchial tree was then examined. The bronchoscope was advanced into the left mainstem bronchus. There was no erythema,mucus and areas of cobblestoning. The left upper lobe, lingula and left lower lobe bronchi were examined up to the third subsegmental level and no abnormalities were identified. There is no endobronchial lesion, active bleeding or mucous plug. The bronchoscope was then introduced into the right mainstem bronchus. The right upper lobe, right middle lobe and right lower lobe bronchi were examined up to the third subsegmental level and no abnormalities were identified. There was mild airway erythema throughout the lung. Using navigational bronchoscopy transbronchial biopsies were performed from the right upper lobe lung mass, fine-needle aspirations and triple needle brush were also obtained. Bronchoalveolar lavage was performed from the apical segment of right upper lobe. 60 mL of saline was instilled, fluid return was 15 mL. The fluid was bloody. The endobronchial ultrasound was introduced through the ET tube. Mediastinal lymphadenopathy involving station 4R was noted. Fine-needle aspiration was performed from station 4R and 7. Samples: 1. Bronchoalveolar lavage specimen was sent for cytology. 2. The transbronchial biopsies are sent for histopathology and quick differential. 3. The transbronchial fine needle aspiration of the aforementioned lymph node groups were sent for cytology. 4. Right upper lobe lung mass Cytobrush and fine-needle aspiration sent for cytology. Complications: There was no immediate complications. The patient was extubated and brought to the PACU in stable condition. Chest x-ray: Pending
--- NOTE | 2020-06-26 08:56 | PC.NURSE ---
BALLOON INTACT AND OUT FROM EBUS SCOPE
--- NOTE | 2020-06-26 09:00 | XRR_ITS ---
PROCEDURE INFORMATION: Exam: XR Chest, 1 View Exam date and time: 06/26/2020 9:11 AM Age: 64 years old Clinical indication: Screening exam; Other screening; Prior surgery; Surgery date: Post-operative (0-2 days); Surgery type: Post bronch; Additional info: Post bronchoscopy TECHNIQUE: Imaging protocol: XR of the chest Views: 1 view. COMPARISON: CR XR chest 1V portable [id number] 05/14/2020 6:18 AM FINDINGS: Lungs: Emphysema most pronounced within the right upper lobe Lungs are well aerated without a focal area of consolidation. Pleural space: Unremarkable. No pleural effusion. No pneumothorax. Heart/Mediastinum: Unremarkable. No cardiomegaly. Bones/joints: Unremarkable. XR/XR chest 1V portable [id number] IMPRESSION: Lungs are well aerated without a focal area of consolidation. No pneumothorax visualized.
--- NOTE | 2020-06-26 14:34 | ANE.PACU2 ---
Inpatient post-anesthesia follow up: Airway intact: Yes Vital signs: Temperature 97.0 F Pulse Rate 72 Respiratory Rate 18 Blood Pressure 115/71 Pulse Oximetry 92 Oxygen Delivery Me thod Room Air Oxygen Flow Rate 8 Fraction of Inspir ed Oxygen Hydration adequate: Yes Nausea and vomiting: No Pain level: 1 Mental status: Baseline
== END 2020-06-26 09:45 | disposition home or self-care (01) ==
PROVIDERS: PCP Family Medicine; Visit Provider Internal Medicine Critical Care Medicine
PROC: BB4BZZZ Ultrasonography of Pleura (ICD-10-PCS; CPT 31624; principal; 2020-06-26 07:00)
PROC: 0BJ08ZZ Inspection of Tracheobronchial Tree, Via Natural or Artificial Opening Endoscopic (ICD-10-PCS; CPT 31622; 2020-06-26 07:00)
DX: R91.8 Other nonspecific abnormal finding of lung field (principal); R59.0 Localized enlarged lymph nodes; J44.9 Chronic obstructive pulmonary disease, unspecified; E78.5 Hyperlipidemia, unspecified; Z79.51 Long term (current) use of inhaled steroids; Z87.891 Personal history of nicotine dependence; Z86.19 Personal history of other infectious and parasitic diseases
CPT/HCPCS: 31624; 31652; 12345; 31625; 31627; 71045; 77011; 80500; 88112; 88305; J2370; J2405; J2704; J2710; J3010; J3490; J7030

== ENCOUNTER → 2020-07-22 14:28 | Outpatient (BNVA) | payer MEDICAID, SELFPAY | PROVIDERS: PCP Family Medicine; Visit Provider Thoracic Surgery (Cardiothoracic Vascular Surgery) | DX: Z11.59 Encounter for screening for other viral diseases (principal) | CPT/HCPCS: 87635 ==

== ENCOUNTER 2020-07-27 05:46 | Day surgery (SDC) | payer MEDICAID, SELFPAY ==
[2020-07-22 12:51] VITALS: BMI 28.5
--- NOTE | 2020-07-22 13:13 | ANES.PREANE2 ---
Pre-Anesthetic Assessment Pre-Anesthetic Assessment: Height/Weight: Height 1.73 m Weight 85.275 kg Preop Diagnosis: Suspected lung cancer Proposed Procedure: Operation Date: 07/27/20 07:00 Proposed Procedures p Bronchoscopy(Not Applicable) - Richard Grant MD s Mediastinoscopy(Not Applicable) - Richard Grant MD Familial anesthetic complications: None Social: Social History: No alcohol and No tobacco Comment: Former smoker Exam: Pre-Anes Outpt Exam: alert, oriented x 3, clear to auscultation bilaterally and regular rate & rhythm Airway: Cervical ROM: WNL MP: 2 Dentition: Full Pulmonary: Pulmonary: COPD (2 l NC at night) Comments: lung mass CV/HEM: CV/HEM: Arrythmia (irregular heart beat since age 19 - i've seen a couple of doctors and they tell me i'm fine) and HTN Metabolic: Metabolic: Hyperlipidemia Anesthetic Plan: ASA status: 3 Anesthesia: General Risk of > 500 ml blood loss (7ml/kg in children): No PFSH Anesthesia PFSH: Medical History (Updated 05/22/20 @ 00:06 by ) COPD (chronic obstructive pulmonary disease) Lung mass Family History Grandmother Stroke Other Hypertension Social History Smoking and tobacco status: former smoker Quit status (tobacco): has quit using tobacco Year quit tobacco: 2017 - PPD x 50 Years Second hand smoke exposure: No Alcohol intake: never Lives independently: Yes Household members: spouse Marital status: Current occupational status: retired and disabled History of recent travel: No Current gender identity: Male Data Anesthesia Cardiac Studies: No Data to Display
[2020-07-22 14:47] LABS: Basophils # 0.1 10^3/uL (0.0-0.1); Basophils % 0.7 %; Eosinophils # 0.2 10^3/uL (0.0-0.8); Eosinophils % 2.5 %; Hematocrit 44.4 % (42.0-52.0); Hemoglobin 13.7 g/dL (11.7-16.6); Lymphocytes # 1.5 10^3/uL (0.8-4.8); Lymphocytes % 21.5 %; Mean Corpuscular HGB Conc 30.9 g/dL (30.0-36.0); Mean Corpuscular Hemoglobin 27.3 pg (28.0-34.0); Mean Corpuscular Volume 88.6 fL (80-94); Monocytes # 0.6 10^3/uL (0.2-0.9); Neutrophils # 4.75 10^3/uL (1.8-7.7); Neutrophils % 66.9 %; Nucleated Red Blood Cells % 0 %; Platelet Count 219 10^3/cmm (130-400); Red Blood Count 5.01 10^6/uL (4.1-5.3); Red Cell Distribution Width 14.6 % (12.1-15.1); White Blood Count 7.1 10^3/uL (4.0-10.0)
[2020-07-22 15:34] LABS: Alanine Aminotransferase 14 U/L (0-41); Albumin Level 4.3 g/dL (3.5-5.2); Alkaline Phosphatase 87 IU/L (40-130); Anion Gap 14.4 (5-19); Aspartate Amino Transferase 14 U/L (0-40); Blood Urea Nitrogen 24 mg/dL (8-23); Calcium 9.7 mg/dL (8.5-10.5); Carbon Dioxide 23 mmol/L (22-29); Chloride 109 mmol/L (98-107); Globulin 2.6 g/dL (1.3-4.6); Glomerular Filtration Rate 75.5 mL/min (90-130); Glucose 87 mg/dL (65-115); Osmolality Calculated 297 mOsm/kg (285-295); Potassium 4.4 mmol/L (3.5-5.1); Sodium 142 mmol/L (136-145); Total Bilirubin 0.3 mg/dL (0.15-1.2); Total Protein 6.9 g/dL (6.6-8.7)
[2020-07-27] VITALS (7 sets, daily range): BP systolic 126–155; BP diastolic 76–92; PULSE 67–92; RESP 12–20; TEMP 36.1–36.4; O2SAT 91–98
--- NOTE | 2020-07-27 06:02 | P.HP_ITS ---
Providers/Chief Complaint Primary Care Provider: Nisha Ventura DO Chief Complaint: Lung Mass History of Present Illness Irineo Marques is a 64 year old male who is been referred to our service to assist with diagnosis for a spiculated apical segment right upper lobe lung mass measuring 2.4 x 1.6 x 2.[address] scan With associated mediastinal adenopathy during an ER visit on May 02 as part of evaluation for fever and ch ills. Subsequent PET scan has revealed increased hypermetabolic activity in both the lesion in the right upper lobe which has been described as well as nodular lesion in the left upper lobe and in addition to right paratracheal adenopathy. Patient has a long history tobacco of greater than 97-ciri-lunv history use as well as COPD. He did stop tobacco in 2016. He did have a positive Covid test in May of this year which did delay his subsequent biopsies and endoscopy by Dr. Douglas until June. He underwent transbronchial biopsy and EBUS by Dr. Douglas on June 26. Results have returned negative for malignancy, though this is still considered a highly suspicious lesion and further sampling has been requested. He does have history of longstanding COPD and utilizes albuterol as well as Advair and Ellipta. He describes his COPD has been under good control and not particularly activity limiting. Review of Systems Const: Denies: fever(s), chills, change in appetite, change in weight, fatigue or night sweats Eyes: Denies: change in vision or blurry vision ENMT: Denies: odynophagia or hoarseness Card: Denies: chest pain, palpitations, irregular heart rhythm or edema Resp: Denies: dyspnea or productive cough GI: Denies: abdominal pain, nausea, vomiting, dysphagia, heartburn or change in bowel habits : Denies: difficulty urinating, dysuria, urinary frequency, urinary urgency or urinary hesitancy Musc: Denies: extremity pain or extremity swelling Skin/Breast: Denies: rash Neuro: Denies: headache(s), numbness in extremities, weakness in extremities or sensory changes Psych: Denies: anxiety, depression or change in appetite Endo: Denies: polyuria, polydipsia or cold intolerance Ramone/Lymph: Denies: easy bruising, easy bleeding, petechiae or enlarged lymph nodes Medications/Allergies Home Medications Medication Instructions Recorded Confirmed Last Taken Type albuterol sulfate 2.5 mg INHALATION Q4H PRN 05/12/20 07/22/20 06/26/20 04:30 His tory albuterol sulfate 90 mcg/actuation 2 puff INHALATION Q6H PRN 05/12/20 07/22/20 06/23/20 History aerosol inhaler alprazolam 1 mg tablet 1 mg PO TID PRN 05/12/20 07/22/20 06/19/20 History aripiprazole 5 mg tablet 5 mg PO DAILY 05/12/20 07/27/20 07/26/20 History bupropion HCl 150 mg tablet,12 hr 150 mg PO BID 05/12/20 07/27/20 07/26/20 History sustained-release cetirizine 10 mg tablet 10 mg PO DAILY 05/12/20 07/27/20 07/26/20 History fluticasone 500 mcg-salmeterol 50 1 inh INHALATION BID 05/12/20 07/27/20 07/27/20 History mcg/dose blistr powdr for inhalation hydrocodone 10 mg-acetaminophen 1 tab PO Q6H PRN 05/12/20 07/27/20 07/26/20 History 325 mg tablet ipratropium bromide 0.02 % 0.5 mg INHALATION Q6H 05/12/20 07/27/20 07/27/20 History solution for inhalation lisinopril 10 mg tablet 10 mg PO DAILY 05/12/20 07/27/20 07/27/20 History montelukast 10 mg tablet 10 mg PO DAILY 05/12/20 07/27/20 07/26/20 History simvastatin 10 mg tablet 10 mg PO DAILY 05/12/20 07/27/20 07/26/20 History tamsulosin 0.4 mg capsule 0.4 mg PO DAILY 05/12/20 07/27/20 07/27/20 History Allergies Allergy/AdvReac Type Severity Reaction Status Date / Time aspirin Allergy Severe ADR-Cramping Verified 06/25/20 13:35 of the Muscles PFSH Acute PFSH: Medical History COPD (chronic obstructive pulmonary disease) Lung mass Family History Grandmother Stroke Other Hypertension Social History Smoking and tobacco status: former smoker Quit status (tobacco): has quit using tobacco Year quit tobacco: 2017 - 2 PPD x 50 Years Second hand smoke exposure: No Alcohol intake: never Lives independently: Yes Household members: spouse Marital status: Current occupational status: retired and disabled History of recent travel: No Current gender identity: Male Physical Exam Const: COMMON NORMALS: patient oriented x3 and alert ORIEN TATION/CONSCIOUSNESS: Yes oriented to person, Yes oriented to place and Yes oriented to time HENMT: COMMON NORMALS: normocephalic HEAD & SCALP: normocephalic Neck/C-Spine: COMMON NORMALS: full ROM, supple, no JVD and No carotid bruits GENERAL: Yes trachea midline CERVICAL SPINE: Yes cervical ROM normal Chest: COMMONS NORMALS: normal inspection of the chest and normal palpation of entire chest wall Resp: COMMON NORMALS: normal respiratory effort, No use of accessory muscles, clear to auscultation bilaterally and percussion normal EFFORT & INSPECTION: Yes able to speak in complete sentences and Yes symmetric chest movement AUSCULTATION: clear to auscultation bilaterally PERCUSSION: percussion normal Cardio: COMMON NORMALS: no JVD, regular rate, regular rhythm, S1 normal heart sound present, S2 normal heart sound present, No gallops present (Cardio), No murmurs present (Cardio), No rub (Cardio) and Peripheral pulses 2+ throughout RATE: regular rate RHYTHM: regular rhythm HEART SOUNDS: S1 normal heart sound present and S2 normal heart sound present PERIPHERAL PULSES: radial pulses present positive bilateral 2+ Extremity: COMMON NORMALS: no clubbing, cyanosis or edema Neuro: COMMON NORMALS: patient oriented x3, no focal motor deficits and no sensory deficits noted SENSORIUM/ORIENTATION: Yes alert, Yes oriented to person, Yes oriented to place and Yes oriented to time Data : 07/22/20 13:22 07/22/20 13:22 A&P Assessment and plan (1) Lung mass: Pleasant 64-year-old gentleman with a concerning spiculated 2.4 cm apical segment right upper lobe lung mass as well as left upper lobe nodule. There is also concerning right paratracheal adenopathy which is also positive on PET scan. Prior bronchoscopy and EBUS which resulted in biopsies that were negative for malignancy. Because of the concerning nature of this lesion r adiographically as well as the patient's long history for tobacco use, we will proceed per recommendations of pulmonary medicine with bronchoscopy and mediastinoscopy, particularly hopefully biopsy at station 4R. Rationale for this was very carefully and frankly discussed with Shelli. Details and risks of the procedure were carefully and frankly discussed. Risks reviewed include the possibility of , stroke, heart attack, major bleeding which could possibly require thoracotomy or sternotomy to attempt control, infection, temporary or permanent hoarseness, pneumonia, pneumothorax requiring chest tube, organ failure, failure to benefit, prolonged hospital stay, pain after the procedure, need for further procedures, inability to complete the procedure, and possible need for long-term followup. All questions were answered. Appropriate consents have been provided for review and signature. Status: Acute Attestations Medical Necessity Statement*: Suspicious right upper lobe lung mass with long history for tobacco use Time Spent in Patient Care: 16 - 35 minutes Coding Level of Care Code New Pt Acute Offset Second Press Operator for Chg Fwd Patient Type New History Detailed Exam Comprehensive Medical Decision Making Moderate Complexity Diagnoses Lung mass R91.8 Time Spent (min) 30
[2020-07-27 06:30] LABS: Basophils # 0.1 10^3/uL (0.0-0.1); Basophils % 0.7 %; Eosinophils # 0.3 10^3/uL (0.0-0.8); Eosinophils % 4.1 %; Hematocrit 43.4 % (42.0-52.0); Hemoglobin 13.6 g/dL (11.7-16.6); Lymphocytes # 1.8 10^3/uL (0.8-4.8); Lymphocytes % 25.7 %; Mean Corpuscular HGB Conc 31.3 g/dL (30.0-36.0); Mean Corpuscular Hemoglobin 27.5 pg (28.0-34.0); Mean Corpuscular Volume 87.7 fL (80-94); Mean Platelet Volume 10.4 fL (7.4-10.4); Monocytes # 0.6 10^3/uL (0.2-0.9); Monocytes % 8.9 %; Neutrophils # 4.28 10^3/uL (1.8-7.7); Neutrophils % 60.2 %; Nucleated Red Blood Cells % 0 %; Platelet Count 205 10^3/cmm (130-400); Red Blood Count 4.95 10^6/uL (4.1-5.3); Red Cell Distribution Width 14.6 % (12.1-15.1); White Blood Count 7.1 10^3/uL (4.0-10.0)
[2020-07-27] MEDS: sodium chloride 0.9% 1,000 ML 30 ML IV (06:36)
--- NOTE | 2020-07-27 07:00 | P.ANESUD_ITS ---
Pre-Anesthetic Update Pre-Anesthetic Assessment: Date of Surgery/Procedure: 07/27/20 Preop Jessica gnosis: Right upper lobe lung mass with mediastinal adenopathy Proposed Procedure: Operation Date: 07/27/20 07:00 Proposed Procedures p Bronchoscopy(Not Applicable) - Richard Grant MD s Mediastinoscopy(Not Applicable) - Richard Grant MD Any changes to Pre-Anesthetic Assessment?: No Last Intake: Intake Last Liquid Date 07/27/20 Last Liquid Time 03:00 Last Solid Date 07/26/20 Last Solid Time 15:00 Labs Last 48hrs: Laboratory Results - last 48 hr 07/27/20 06:15 WBC 7.1 RBC 4.95 Hgb 13.6 Hct 43.4 MCV 87.7 MCH 27.5 L MCHC 31.3 RDW 14.6 Plt Count 205 MPV 10.4 Neut % (Auto) 60.2 Lymph % (Auto) 25.7 Evans % (Auto) 8.9 Eos % (Auto) 4.1 Baso % (Auto) 0.7 Neut # (Auto) 4.28 Lymph # (Auto) 1.8 Evans # (Auto) 0.6 Eos # (Auto) 0.3 Baso # (Auto) 0.1 Nucleated RBC % (a uto) 0 Nucleated RBCs # 0.0 Vitals: Temperature 97.6 F 07/27/20 06:23 Temperature Source Temporal Artery S can 07/27/20 06:23 Pulse Rate 67 07/27/20 06:23 Respiratory Rate 16 07/27/20 06:23 Blood Pressure 155/76 07/27/20 06:23 Blood Pressure Amanda n 102 07/27/20 06:23 Pulse Oximetry 95 07/27/20 06:23 Oxygen Delivery Me thod 07/27/20 06:23 Exam: Pre-Anes Outpt Exam: alert, oriented x 3, clear to auscultation bilate rally and regular rate & rhythm Cardiac Studies: No Data to Display
[2020-07-27 07:08] LABS: Anion Gap 13.3 (5-19); Blood Urea Nitrogen 31 mg/dL (8-23); Calcium 9.3 mg/dL (8.5-10.5); Carbon Dioxide 23 mmol/L (22-29); Chloride 108 mmol/L (98-107); Glomerular Filtration Rate 75.5 mL/min (90-130); Glucose 115 mg/dL (65-115); Osmolality Calculated 297 mOsm/kg (285-295); Potassium 4.3 mmol/L (3.5-5.1); Sodium 140 mmol/L (136-145)
[2020-07-27] MEDS: cetacaine Spray 5 gm Can 3 SPRAY TOPICAL (07:10)
[2020-07-27] MEDS: vancomycin 1,000 MG SDV 1000 MG IRRIGATION (07:35)
[2020-07-27 07:52] LABS: INR 0.96 (0.8-1.2)
--- NOTE | 2020-07-27 08:34 | PM.OP ---
Operative Report Date of procedure: July 27, 2020 Pre-op Diagnosis: Right upper lobe lung mass with mediastinal adenopathy Post-op diagnosis: same Procedure Done: 1. Flexible diagnostic bronchoscopy 2. Mediastinoscopy with biopsy at station 4R Specimens removed/disposition: Lymphoid material from station 4R sent to pathology for permanent analysis Surgeon: Richard Grant Anesthesia: General Estimated blood loss (mL): 5 Condition: stable Disposition: PACU Brief History: 64-year-old gentleman with a suspicious 2.4 cm apical segment right upper lobe lesion identified on CT scan during an ER visit for fever chills. Lesion radiographically is suspicious. Also is a lesion in the left upper lobe. Subsequent PET scan did reveal increased activity in both of these lesions as well as right paratracheal adenopathy. Recent navigational bronchoscopy and EBUS with biopsy unfortunately, did not reveal a diagnosis. We have recommended follow-up bronchoscopy and mediastinoscopy. Details the risk of procedure carefully discussed. Proper consents have been reviewed and signed. Procedure: Flexible diagnostic bronchoscopy: Procedure: Mr. Marques underwent general endotracheal anesthesia with an 8.0 endotracheal tube. With adequate anesthesia, flexible bronchoscope was inserted through the endotracheal tube. In a methodical fashion the trachea, felisha, right main bronchus and associated lobar bronchi were inspected. In a similar fashion the left side was inspected. Secretions were cleared as needed to allow for adequate inspection. Normal saline or normal saline and bicarbonate solution were used to clear thick or tenacious secretions. Findings: Main felisha and secondary felisha were sharp. Branching anatomy was normal. There was no evidence for submucosal infiltration or extrinsic compression. Mucosa was not friable. No endobronchial lesions were seen. Orifices to secondary and tertiary bronchi appeared unremarkable. An Olympus scope was utilized and related to its size, we could not pass beyond the level of tertiary bronchi. Once completed, the scope was withdrawn under direct visualization confirming cleared secretions and no substantial bleeding. Endoscopic photos were taken as required to document pathology. Next, Mr. Marques was repositioned for planned mediastinoscopy. Mediastinoscopy: PROCEDURE: Appropriate invasive lines were placed. After positioning over protective padding, he was sterilely prepped and draped. A transverse incision was made above the sternal notch and carried down through the platysma. Cautery was utilized and large bridging veins were secured with clips and ligature prior to division. The pretracheal space was reached and enhanced the surgeon's finger. Mediastinoscope was inserted by direct vision and carefully advanced along the anterior plane of the trachea. Utilizing blunt dissection with suction, prominent lymph node material at stations 4R were dissected free. Aspiration was then carefully performed followed by biopsy under direct vision. 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 Specimens were sent to pathology for permanent analysis. After adequate biopsy and tissue sampling, the patient was placed in reverse Trendelenburg position. Hemostasis was confirmed with the use of cautery, packing, and Surgicel. After confirmation of hemostasis, the scope was withdrawn under direct vision. The wound was then carefully irrigated and closed with 3-0 and 4-0 Vicryl suture. The skin was reapproximated in a subcuticular manner. Sterile dressing was applied. With equal breath sounds bilaterally,Mr. Ramirez was then awakened from anesthesia, extubated, and taken to the Postoperative Care Unit with stable vital signs. His family was then counseled.
--- NOTE | 2020-07-27 08:41 | SUR.PHASEI ---
0812 PATIENT TO PACU FROM OR. RR EVEN AND UNLABORED. PLACED ON SIMPLE MASK AT 8L, SPO2 99%. DRESSING TO ANTERIOR NECK, CDI. PATIENT C/O PAIN TO NECK.
--- NOTE | 2020-07-27 08:58 | SUR.PHASEI ---
0855 PATIENT TO OPS. NO DISTRESS. TOLERATING ICE CHIPS.
--- NOTE | 2020-07-27 09:30 | ANE.PACU2 ---
Inpatient post-anesthesia follow up: Airway intact: Yes Vital signs: Temperature 97.0 F Pulse Rate 77 Respiratory Rate 18 Blood Pressure 148/92 Pulse Oximetry 98 Oxygen Delivery Me thod Room Air Oxygen Flow Rate 3 Fraction of Inspir ed Oxygen 3 Hydration adequate: Yes Nausea and vomiting: No Pain level: 2 Mental status: Baseline
== END 2020-07-27 09:30 | disposition home or self-care (01) ==
PROVIDERS: Anesthesiology; PCP Family Medicine; Visit Provider Thoracic Surgery (Cardiothoracic Vascular Surgery)
PROC: 0BJ08ZZ Inspection of Tracheobronchial Tree, Via Natural or Artificial Opening Endoscopic (ICD-10-PCS; CPT 31622; principal; 2020-07-27 07:00)
PROC: 0WJC4ZZ Inspection of Mediastinum, Percutaneous Endoscopic Approach (ICD-10-PCS; CPT 39401; 2020-07-27 07:00)
DX: R91.8 Other nonspecific abnormal finding of lung field (principal); J44.9 Chronic obstructive pulmonary disease, unspecified; Z99.81 Dependence on supplemental oxygen; I10 Essential (primary) hypertension; E78.5 Hyperlipidemia, unspecified; Z87.891 Personal history of nicotine dependence
CPT/HCPCS: 12345; 31622; 36415; 80048; 80053; 85025; 85610; 86850; 86900; 86920; 88305; J0690; J1100; J2370; J2405; J2704; J2710; J3010; J3370; J3490; J7030

== ENCOUNTER 2020-08-21 13:24 | Outpatient (CLI) | payer MEDICAID, SELFPAY ==
--- NOTE | 2020-08-21 14:00 | CT_ITS ---
WS: [id number] CT CHEST TECHNIQUE: Contrast enhanced CT of the chest with coronal and sagittal reformatted images. CLINICAL INFORMATION: R91.8 - Other nonspecific abnormal finding of lung field COMPARISON: CT chest May 02, 2020 DLP: 730.[address] scans at [facility] use at least one of these dose optimization techniques: automat ed exposure control; mA and/or kV adjustment per patient size (includes targeted exams where dose is matched to clinical indication); or iterative reconstruction. FINDINGS: Moderate chronic emphysematous changes. Scattered fibrosis in the right upper lobe. Previously descri bedFDG avid nodular mass in the right upper lobe has ssentially resolved since the prior examinations . Small residual focal opacity in the right upper lobe measuring 5.6 mm. Surrounding interstitial inf iltrate or fibrosis likely due to treatment-related changes. No other suspicious residual opacities. Subsegmental atelectasis/fibrosis in the lingula. Normal thyroid gland. Aortic calcification. No mediastinal or hilar lymphadenopathy. No axillary lymp hadenopathy. Adrenal glands are normal. CT/CT chest w con* [id number] IMPRESSION: 1. Residual right upper lobe pulmonary opacity measuring 5.6 mm. Surrounding i nterstitial thickening likely due to treatment-related changes or fibrosis. Rec ommend continued surveillance with 3-6 month follow-up. 2. No other suspicious residual opacities. 3. Subsegmental atelectasis/fibrosis in the lingula. 4. Chronic emphysematous changes. 5. No mediastinal or hilar lymphadenopathy.
[2020-08-21] MEDS: iohexol 300 mg/mL 100 mL Btl IV (14:40)
[2020-08-21 14:44] LABS: Blood Urea Nitrogen 15 mg/dL (8-23); Glomerular Filtration Rate 85.2 mL/min (90-130)
== END 2020-08-21 13:25 | disposition home or self-care (01) ==
LOC: RAD 13:26
PROVIDERS: PCP Family Medicine; Visit Provider Thoracic Surgery (Cardiothoracic Vascular Surgery)
DX: R91.8 Other nonspecific abnormal finding of lung field (principal); J98.11 Atelectasis
CPT/HCPCS: 36415; 71260; 82565; 84520

== ENCOUNTER 2021-04-09 20:34 | Emergency (ER) | payer MEDICAID, SELFPAY ==
[2021-04-09 21:00] VITALS: BP 156/76; PULSE 74; RESP 15; TEMP 36.6; O2SAT 92; BMI 28.8
[2021-04-09 21:34] VITALS: BP 156/76; PULSE 84; RESP 18; O2SAT 90
--- NOTE | 2021-04-09 21:36 | CTR_ITS ---
PROCEDURE INFORMATION: Exam: CTA Chest With Contrast Exam date and time: 04/09/2021 9:36 PM Age: 65 years old Clinical indication: Shortness of breath; Additional info: R sided chest pain, ? mass TECHNIQUE: Imaging protocol: Computed tomographic angiography of the chest with contrast. 3D rendering (Not supervised by radiologist): MIP and/or 3D reconstructed images were created by the technologist. Radiation optimization: All CT scans at this facility use at least one of these dose optimization techniques: automated exposure control; mA and/or kV adjustment per patient size (includes targeted exams where dose is matched to clinical indication); or iterative reconstruction. Contrast material: OMNI 350; Contrast volume: 74 ml; Contrast route: INTRAVENOUS (IV); COMPARISON: CT chest w con* [id number] 08/21/2020 2:39 PM RADIATION DOSE METRICS: Total DLP (mGy-cm): 584.53 FINDINGS: Pulmonary arteries: No pulmonary embolism. Aorta: Mild atherosclerotic disease of the aorta without aneurysm. No aortic dissection. Lungs: Severe emphysema. Right lower lobe consolidation consistent with pneumonia. Atelectasis or pneumonia in the inferior aspect of the left upper lobe. Pleural spaces: Unremarkable. No pneumothorax. No pleural effusion. Heart: Unremarkable. No cardiomegaly. No pericardial effusion. Lymph nodes: Unremarkable. No enlarged lymph nodes. Bones/joints: Unremarkable. No acute fracture. Soft tissues: Unremarkable. CT/CT angio chest PE protcl [id number] IMPRESSION: 1. No pulmonary embolism. 2. Right lower lobe consolidation consistent with pneumonia. 3. Atelectasis or pneumonia in the inferior aspect of the left upper lobe. 4. Mild atherosclerotic disease of the aorta without aneurysm. 5. Severe emphysema. Radiation Dose CTDIVOL = (mGy): DLP = 584.53 (mGy-cm)
--- NOTE | 2021-04-09 21:51 | W.ED.SOB ---
HPI - SOB/Dyspnea General: Chief Complaint: Shortness of Breath/Dyspnea Stated Complaint: KNOT IN R SIDE CAUSING DIFF BREATHING Time Seen by Provider: 04/09/21 21:05 History of Present Illness: HPI Narrative: 65-year-old male with a history of COPD and alpha-1 antitrypsin deficiency. He presents saying that he noticed a knot on his right side around a month ago. The past couple days it has become painful, especially with breathing. It is causing him to be short of breath he says it is tender to touch. There is no rash over it. It is located over the lower right chest anterior to the midaxillary line. MD elicited complaint: shortness of breath and chest pain Pertinent past history: COPD and other Onset (ago): hour(s) Context: other Timing: constant Severity: moderate Exacerbating factors: movement and deep breaths Relieving factors: nothing Known history of: COPD Associated symptoms: Reports chest pain; Deny chest congestion, cough, fever(s), hemoptysis, nausea, palpitations, rash, syncope or vomiting Review of Systems Const: Denies: fever(s) ENMT: Denies: throat pain Card: Reports: chest pain; Denies: palpitations or syncope Resp: Denies: hemoptysis or chest congestion GI: Denies: nausea or vomiting Neuro: Denies: sensory changes PFSH ED PFSH: Medical History (Updated 04/10/21 @ 01:59 by Baron Mota DO) COPD (chronic obstructive pulmonary disease) Lung mass Family History Grandmother Stroke Other Hypertension Social History Smoking and tobacco status: former smoker Quit status (tobacco): has quit using tobacco Year quit tobacco: 2017 - 2 PPD x 50 Years Second hand smoke exposure: No Alcohol intake: never Lives independently: Yes Household members: spouse Marital status: Current occupational status: retired and disabled History of recent travel: No Current gender identity: Male Physical Exam Const: GENERAL APPEARANCE: well developed ORIENTATION/CONSCIOUSNESS: Yes oriented to person, Yes oriented to place and Yes oriented to time HENMT: COMMON NORMALS: normocephalic HEAD & SCALP: normocephalic Eye: COMMON NORMALS: Equal, round and reactive pupils present, EOMs intact bilaterally and conjunctivae normal EYELID: eyelids normal CONJUNCTIVA: Yes conjunctivae normal PUPIL: Yes Equal, round and reactive pupils present Neck/C-Spine: COMMON NORMALS: full ROM GENERAL: No tracheal deviation Chest: COMMONS NORMALS: normal inspection of the chest CHEST: Yes mass (Right side anterior to mid axillary line inferior chest wall, small palpabl) and Yes tenderness Resp: COMMON NORMALS: clear to auscultation bilaterally EFFORT & INSPECTION: No tachypneic, No respiratory distress, No retractions, No uses accessory muscles and No tracheal deviation AUSCULTATION: clear to auscultation bilaterally, no rhonchi, no wheezes and lung sounds not diminished Cardio: COMMON NORMALS: regular rate and regular rhythm RATE: regular rate RHYTHM: regular rhythm HEART SOUNDS: no murmurs PERIPHERAL PULSES: radial pulses present GI: INSPECTION: No abdominal distension AUSCULTATION: No Hyperactive bowel sounds present and No Hypoactive bowel sounds present PALPATION: No Guarding due to palpation present (GI) and No Rigid due to palpation PERCUSSION: no dullness to percussion and no tympanic to percussion Neuro: SENSORIUM/ORIENTATION: Yes oriented to person, Yes oriented to place and Yes oriented to time Psych: COMMON NORMALS: mental status grossly normal Skin: COMMON NORMALS: no rashes or lesions noted GENERAL SKIN EXAM: no rashes or lesions noted Course Vital Signs: Vital signs: Vital Signs Temperature 97.9 F 04/09/21 21:00 Pulse Rate 84 04/10/21 01:00 Respiratory Rate 18 04/10/21 01:00 Blood Pressure 156/76 04/10/21 01:00 Pulse Oximetry 94 04/10/21 01:00 MDM - SOB/Dyspnea MDM Narrative: Medical decision making narrative: Labs appear essentially normal. CTA of the chest is performed. There is no pulmonary embolus. There is a right lower lobe pneumonia likely responsible for at least some of his pain. Soft tissues are read as negative. It appears that there is some swelling of the musculature to the right lateral chest wall. The patient will follow up with his PCP regarding any further imaging should this not improve. He will be treated with steroids and antibiotics. He has not had his Covid vaccine, so therefore Covid testing will be sent. Lab Data: Labs: Lab Results 04/09/21 04/09/21 Range/Units 21:50 21:50 WBC 8.5 (4.0-10.0) 10^3/ uL RBC 4.75 (4.1-5.3) 10^6/u L Hgb 13.7 (11.7-16.6) g/dL Hct 42.5 (42.0-52.0) % MCV 89.5 (80-94) fL MCH 28.8 (28.0-34.0) pg MCHC 32.2 (30.0-36.0) g/dL RDW 12.9 (12.1-15.1) % Plt Count 212 (130-400) 10^3/c mm MPV 10.6 H (7.4-10.4) fL Neut % (Auto) 67.9 % Lymph % (Auto) 18.2 % [place] % (Auto) 9.9 % Eos % (Auto) 2.8 % Baso % (Auto) 0.7 % Neut # (Auto) 5.78 (1.8-7.7) 10^3/u L Lymph # (Auto) 1.6 (0.8-4.8) 10^3/u L [place] # (Auto) 0.8 (0.2-0.9) 10^3/u L Eos # (Auto) 0.2 (0.0-0.8) 10^3/u L Baso # (Auto) 0.1 (0.0-0.1) 10^3/u L Nucleated RBC % (a uto) 0 % Nucleated RBCs # 0.0 /100WBC Sodium 141 (136-145) mmol/L Potassium 4.1 (3.5-5.1) mmol/L Chloride 105 (98-107) mmol/L Carbon Dioxide 24 (22-29) mmol/L Anion Gap 16.1 (5-19) BUN 20 (8-23) mg/dL Creatinine 1.1 (0.7-1.2) mg/dL GFR Calculation 67.4 L (90-130) mL/min Glucose 111 (65-115) mg/dL Calculated Osmolal ity 295 (285-295) mOsm/k g Calcium 9.1 (8.5-10.5) mg/dL Total Bilirubin 0.4 (0.15-1.2) mg/dL AST 14 (0-40) U/L ALT 15 (0-41) U/L Alkaline Phosphata se 105 (40-130) IU/L NT-Pro-B Natriuret Pep 258 H (0-125) pg/mL Total Protein 6.9 (6.6-8.7) g/dL Albumin 4.3 (3.5-5.2) g/dL Globulin 2.6 (1.3-4.6) g/dL Discharge Plan Discharge Patient Disposition: Home Clinical Impression: Community acquired pneumonia Qualifiers: Laterality: right Lung location: lower lobe of lung Qualified Code(s): J18.9 - Pneumonia, unspecified organism Condition: Stable Prescriptions: New ketorolac 10 mg tablet 10 mg PO TID PRN (Reason: pain) Qty: 10 RF: 0 Percocet 7.5-325 mg tablet 1 tab PO Q6H PRN (Reason: pain) Qty: 10 RF: 0 Medrol (Fox) 4 mg tablets,dose pack See Rx Instructions .ROUTE .COMPLEX Qty: 21 RF: 0 doxycycline hyclate 100 mg capsule 100 mg PO BID 7 Days Qty: 14 RF: 0 No Action fluticasone propion-salmeterol [Advair Diskus] 500-50 mcg/dose blister with device 1 inh INHALATION BID RF: 0 albuterol sulfate [ProAir HFA] 90 mcg/actuation HFA aerosol inhaler 2 puff INHALATION Q6H PRN (Reason: Shortness Of Breath) RF: 0 alprazolam [Xanax] 1 mg tablet 1 mg PO TID PRN (Reason: Anxiety) RF: 0 simvastatin [Zocor] 10 mg tablet 10 mg PO DAILY RF: 0 bupropion HCl [Wellbutrin SR] 150 mg tablet sustained-release 12 hr 150 mg PO BID RF: 0 cetirizine [Zyrtec] 10 mg tablet 10 mg PO DAILY RF: 0 lisinopril [Prinivil] 10 mg tablet 10 mg PO DAILY RF: 0 tamsulosin 0.4 mg capsule 0.4 mg PO DAILY RF: 0 montelukast [Singulair] 10 mg tablet 10 mg PO DAILY RF: 0 aripiprazole [Abilify] 5 mg tablet 5 mg PO DAILY RF: 0 hydrocodone-acetaminophen [[place]] 10-325 mg tablet 1 tab PO Q6H PRN (Reason: Pain) RF: 0 albuterol sulfate 2.5 mg /3 mL (0.083 %) solution for nebulization 2.5 mg INHALATION Q4H PRN (Reason: Shortness Of Breath) RF: 0 ipratropium bromide 0.02 % solution 0.5 mg INHALATION Q6H RF: 0 Discharge Orders: Discharge ED (Routine); Ordered 04/10/21 Ordered By: Baron Mota Referrals: Nisha Ventura DO [Primary Care Provider] - 4-7 days Discharge Diet: Advance as tolerated Discharge Activity: Limit activity as instructed Patient Instructions: Pneumonia (ED) Activity Restrictions/Additional Instructions: Return for fever greater than 100 despite 2-3 doses of antibiotics, worsening pain despite treatment, worsening shortness of breath, any other concerning symptoms. Follow-up with your primary physician about the area of swelling to the right side of your chest. there may be more outpatient testing necessary. Coding Level of Care Code ED Workers Compensation Examiner for Chg Fwd Exam Comprehensive
[2021-04-09] MEDS: ondansetron 2 mg/ML SDV 2 mL 4 MG IVP (21:55)
[2021-04-09 22:00] VITALS: RESP 18
[2021-04-09] MEDS: morphine 4 mg/mL SDV 1 mL IVP ×2 (22:00→23:59)
[2021-04-09 22:12] LABS: Basophils # 0.1 10^3/uL (0.0-0.1); Basophils % 0.7 %; Eosinophils # 0.2 10^3/uL (0.0-0.8); Eosinophils % 2.8 %; Hematocrit 42.5 % (42.0-52.0); Hemoglobin 13.7 g/dL (11.7-16.6); Lymphocytes # 1.6 10^3/uL (0.8-4.8); Lymphocytes % 18.2 %; Mean Corpuscular HGB Conc 32.2 g/dL (30.0-36.0); Mean Corpuscular Hemoglobin 28.8 pg (28.0-34.0); Mean Corpuscular Volume 89.5 fL (80-94); Mean Platelet Volume 10.6 fL (7.4-10.4); Monocytes # 0.8 10^3/uL (0.2-0.9); Monocytes % 9.9 %; Neutrophils # 5.78 10^3/uL (1.8-7.7); Neutrophils % 67.9 %; Nucleated Red Blood Cells % 0 %; Platelet Count 212 10^3/cmm (130-400); Red Blood Count 4.75 10^6/uL (4.1-5.3); Red Cell Distribution Width 12.9 % (12.1-15.1); White Blood Count 8.5 10^3/uL (4.0-10.0)
[2021-04-09 22:50] LABS: Alanine Aminotransferase 15 U/L (0-41); Albumin Level 4.3 g/dL (3.5-5.2); Alkaline Phosphatase 105 IU/L (40-130); Anion Gap 16.1 (5-19); Aspartate Amino Transferase 14 U/L (0-40); Blood Urea Nitrogen 20 mg/dL (8-23); Calcium 9.1 mg/dL (8.5-10.5); Carbon Dioxide 24 mmol/L (22-29); Chloride 105 mmol/L (98-107); Globulin 2.6 g/dL (1.3-4.6); Glomerular Filtration Rate 67.4 mL/min (90-130); Glucose 111 mg/dL (65-115); NT Pro B Type Natriuretic Pept 258 pg/mL (0-125); Osmolality Calculated 295 mOsm/kg (285-295); Potassium 4.1 mmol/L (3.5-5.1); Sodium 141 mmol/L (136-145); Total Bilirubin 0.4 mg/dL (0.15-1.2); Total Protein 6.9 g/dL (6.6-8.7)
[2021-04-09] MEDS: iohexol 350 mg/mL 100 mL Btl IV (23:30)
[2021-04-09 23:59] VITALS: RESP 18
[2021-04-10 01:00] VITALS: BP 156/76; PULSE 84; RESP 18; O2SAT 94
[2021-04-10] MEDS: doxycycline 100 mg Tablet PO (02:39)
[2021-04-10] MEDS: dexamethasone 4 mg/mL INJ 6 MG IVP (02:39)
[2021-04-10] MEDS: ketorolac 30 mg/mL INJ 15 MG IVP (02:40)
[2021-04-10 02:53] VITALS: BP 156/76; PULSE 84; RESP 18; O2SAT 90
== END 2021-04-10 02:45 | disposition home or self-care (01) ==
PROVIDERS: Emergency Provider Emergency Medicine; PCP Family Medicine
DX: J44.0 Chronic obstructive pulmonary disease with (acute) lower respiratory infection (principal); J18.9 Pneumonia, unspecified organism; Z87.891 Personal history of nicotine dependence
CPT/HCPCS: 71275; 80053; 83880; 85025; 96374; 96375; 96376; 99284; J1100; J1885; J2270; J2405; Q9967

== ENCOUNTER 2022-01-01 18:56 | Emergency (ER) | payer MEDICARE, OTHER, MEDICAID, SELFPAY ==
--- NOTE | 2022-01-01 19:14 | ECG_ITS ---
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 Measurements Intervals Everly Rate: 69 P: 34 DC: 141 QRS: 60 QRSD: 100 T: 52 QT: 393 QTc: 422 Interpretive Statements SINUS RHYTHM WITH OCCASIONAL VENTRICULAR PREMATURE COMPLEXES Compared to ECG 05/02/2020 20:42:29 T-wave abnormality no longer present Electronically Signed On 01-03-2022 9:02:00 CDT by Jean Davenport M.D. [id number]
[2022-01-01 19:25] VITALS: BP 157/97; PULSE 69; RESP 18; TEMP 36.8; O2SAT 100; BMI 25.8
== END 2022-01-01 20:17 | disposition left against medical advice (07) ==
PROVIDERS: Emergency Provider Family Medicine; PCP Family Medicine
DX: Z53.21 Procedure and treatment not carried out due to patient leaving prior to being seen by health care provider (principal)
CPT/HCPCS: 93005

== ENCOUNTER → 2022-02-02 11:12 | Outpatient (BNVA) | payer MEDICARE, MEDICAID, SELFPAY | PROVIDERS: PCP Family Medicine; Visit Provider Nurse Practitioner | DX: F43.12 Post-traumatic stress disorder, chronic (principal); F17.211 Nicotine dependence, cigarettes, in remission; F10.21 Alcohol dependence, in remission; F12.21 Cannabis dependence, in remission; F14.11 Cocaine abuse, in remission | CPT/HCPCS: 90792 ==

== ENCOUNTER 2025-05-01 10:13 | Outpatient (CLI) | payer MEDICARE, MEDICAID, SELFPAY ==
[2025-05-01 10:45] VITALS: BMI 28.1
--- NOTE | 2025-05-01 10:45 | ECG_ITS ---
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 Baseline heart rate was 52 beats per minute. Baseline blood pressure was 135/82 millimeters of mercury. Target heart rate was 152 beats per minute. Maximum heart rate achieved was 132, which was 86% of the target heart rate. Maximum blood pressure was 198/86 millimeters of mercury. Total exercise time was 14 minutes 29 seconds. Maximum METs achieved was 1.0, maximum VO2 was 3.5. The reason for ending the test was completion of the protocol. The patient did not complained of any symptoms during the stress test, which then resolved at the end of the test. ELECTROCARDIOGRAM: BASELINE: Sinus bradycardia, normal axis, no significant ST-T changes at the baseline noted. EXERCISE: At the peak exercise level, no significant ST-T changes suggestive of ischemia noted. RECOVERY: During the recovery period, heart rate dropped appropriately. No significant ST-T changes in the recovery suggestive of ischemia noted. CONCLUSION: 1. Dobutamine infusion was unremarkable 2. Heart rate response was appropriate. 3. Blood pressure response was appropriate. 4. Symptoms not suggestive of ischemia. 5. Electrocardiogram portion of the stress test was not suggestive of ischemia. 6. Nuclear scan will be documented separately. Electronically Signed On 05-19-2025 18:42:00 CDT by DMITRI BENITES [email or web address] [id number]
--- NOTE | 2025-05-01 10:46 | NMCV_ITS ---
NM xavi perf SPECT r/s* [id number] Irineo Marques Age: 69 Gender: M : 1955 Exam Date: 05/01/2025 11:06 Ordering Phys: Nisha Ventura DO Technologist: MARCOS Le Exam Location: [facility] Indications: cp STRESS TEST [facility] IMAGE PROTOCOL Rest/Stress 1 Dobutamine Day Radiopharmaceutical Dose (mCi) Administration Site Administered by Rest: Tc-99m 11 IV Tanja Haynes, FISHERIES SPECIALIST Sestamibi Stress:Tc-99m 32.9 IV Tanja Haynes, FISHERIES SPECIALIST Sestamibi Rest: 01-May-2025 60 Discovery 630 Stress: 01-May-2025 15 Discovery 630 Radiopharmaceutical was injected at 85 % maximum heart rate. Images obtained in supine and prone position. SPECT RESULTS Technical Quality: Good Raw Data Analysis: Normal Image Corrections: No attenuation or motion correction applied Summed Stress Score: 10 Summed Rest Score: 6 Summed Difference Score: 5 PERFUSION FINDINGS Medium to large size area of basal to distal inferior and inferolateral wall surrounded by medium sized area of moderate reversibility especially in the inferolateral region suggestive of old myocardial infarction surrounded by medium size area of moderate ischemia either in dominant RCA or circumflex territory. FUNCTIONAL RESULTS (calculated via Gated SPECT) Stress Image LV EF (%): 69 Stress EDV (mL):97 TID: 1.02 Stress ESV (mL):30 FUNCTIONAL FINDINGS: There is basal to mid inferior and inferolateral wall hypokinesis IMPRESSIONS There is medium to large size area of basal to distal inferior and inferolateral wall old myocardial infarction versus scarring surrounded by medium size area of moderate ischemia especially in the specifically in the inferolateral region suggestive of lesion in the RCA or dominant circumflex territory. Zurdo Qiu MD (Electronically Signed) Final Date: 02 May 2025 09:46 S
[2025-05-01] MEDS: DOBUTtamine 200 MG in sodium chloride 0.9% 34 ML 12.59 MG IV (11:34)
[2025-05-01 11:55] VITALS: BP 163/81; PULSE 74
== END 2025-05-01 10:14 | disposition home or self-care (01) ==
PROVIDERS: PCP Family Medicine; Visit Provider Family Medicine
DX: R07.9 Chest pain, unspecified (principal); R93.1 Abnormal findings on diagnostic imaging of heart and coronary circulation
CPT/HCPCS: 36415; 78452; 93017; 96374; A9500; J1250; J7050

== ENCOUNTER → 2025-05-23 10:27 | Outpatient (BNVA) | payer MEDICARE, MEDICAID, SELFPAY | PROVIDERS: PCP Family Medicine; Referring Provider Family Medicine; Visit Provider Internal Medicine Cardiovascular Disease | DX: R58 Hemorrhage, not elsewhere classified (principal); I10 Essential (primary) hypertension; R94.39 Abnormal result of other cardiovascular function study | CPT/HCPCS: 36415; 80048; 85025; 85610 ==

== ENCOUNTER 2025-06-24 05:35 | Outpatient (CLI) | payer MEDICARE, MEDICAID, SELFPAY ==
[2025-06-24] VITALS (43 sets, daily range): BP systolic 102–160; BP diastolic 59–82; PULSE 51–71; RESP 12–27; TEMP 36.1–36.8; O2SAT 90–97; BMI 26.6
--- NOTE | 2025-06-24 06:00 | XACV_ITS ---
Exam Room: 2 Ht: 173 cm Wt: 79 kg BSA: 1.97 m2 Gender: Male : 1955 Any Known Allergies: Asprin Exam Priority: Routine Procedure(s): Procedure Description: Diagnostic procedure Procedure Description: PCI procedure Procedure Description: Drug Eluting Coronary Stent Procedure Description: PTCA Procedure Description: Miscellaneous Procedure Description: ACT Procedure Description: Coronary Angiography Uyen TOMLIN; Diagnostic Cath Status: Elective Diagnostic Findings * Left Main has no disease. * Circumflex has no disease. * Proximal Left Anterior Descending to Mid Left Anterior Descending: significant 80% stenosis, STEVE: 3 flow. * Proximal Right Coronary Artery: minimal 30% stenosis, STEVE: 3 flow. * Mid Right Coronary Artery: significant 80% stenosis, STEVE: 3 flow. * 1st Diagonal: obstructive 70% stenosis, STEVE: 3 flow. * Coronary angiography shows right dominance. PCI Status: Elective Interventional Findings * Proximal Left Anterior Descending to Mid Left Anterior Descendin% stenosis treated with a AB MINI TREK 2.00X12 RX BALLOON, AMELIA Cooper JOSE 2.75X12 ELISA, and AMELIA HERNÁNDEZ EUPHORA RX [id number] BALLOON. 0% residual stenosis, STEVE: 3 flow. * Mid Right Coronary Artery: 80% stenosis treated with a AB TREK 2.50X15 RX BALLOON, AMELIA Cooper JOSE 3.0X22 ELISA, and MDJuan HERNÁNDEZ EUPHORA RX [id number] BALLOON. 0% residual stenosis, STEVE: 3 flow. * 1st Diagonal: 70% stenosis treated with a AB MINI TREK 2.00X8 RX BALLOON. 30% residual stenosis, STEVE: 3 flow. Conclusions 1. There is significant coronary artery disease with two vessel disease. 2. Proximal Left Anterior Descending to Mid Left Anterior Descending was treated with a Balloon, Drug Eluting Stent, and Balloon. 3. Mid Right Coronary Artery was treated with a Balloon, Drug Eluting Stent, and Balloon. 4. 1st Diagonal was treated with a Balloon. Recommendations * 1-Return to inpatient for close monitoring and routine cath care 2-Risk factor modification for secondary prevention 3-Statin and aspirin 81 mg life-long, if tolerated 4-Patient was pre-loaded with 600 mg of Plavix, continue Plavix 75mg p.o. daily for at least one year. We will assess at the end of one year again to continue if further or not 5-Continue optimal medical management 6-Follow up with Dr. Qiu in four weeks and your primary care in 10 days. Diagnostic RX Recommendation: PCI w/o planned CABG Pressures Phase:Rest AO : 107 / 78 ( 92 ) @ 1:32:00 PM 110 / 74 ( 92 ) @ 1:36:00 PM 134 / 71 ( 96 ) @ 1:43:00 PM 113 / 60 ( 79 ) @ 1:48:00 PM 101 / 35 ( 59 ) @ 1:53:00 PM 157 / 85 ( 117 ) @ 2:43:00 PM Clinical Evaluation EBL: 5mL-10mL Procedural Details Procedure Consent Obtained. Pre-Procedure Time Out. Identified patient by full name and date of as verbalized by the patient/guarantor. Does the consent match the physician's order: Yes. Accurate & Complete Informed Consent: Yes. Inpatient/Outpatient History & Physical on Chart: Yes. If H&P is completed, is and addenduem needed: No; If yes, is the addendum complete: N/A. Visualize and Verify Site with Patient/Guarantor: N/A. Relevant Radiology Images available: Yes. Pre-op teaching completed and patient verbalized understanding. The risks, benefits, and alternatives of sedation and/or procedure were discussed by physician. The patient agrees to continue. Procedure started. [facility] Clinical Fraility Score: 3: Managing Well. Family Service Aide Indications: Worsening Angina. Chest Pain Symptom Assessment: Typical Angina Symptoms. Current diagnosis: Chest Pain. PERRLA. Strong, equal hand financial services auditor bilaterally. Lungs clear x 5 lobes. IV Site on Arrival: 20 gauge in the right anticubital. IV Fluids: 0.9% NaCl at KVO. 0 mL infused prior to canvas shop laborer. Pre Procedural Pulses: bilateral dorsalis pedis was Doppled. Pre Procedural Pulses: bilateral posterior tibial was Doppled. Pre Procedural Pulses: bilateral radial was 3+. Oxygen started at 2liters/min via nasal canula. right groin was prepped with chloroprep then draped in the usual sterile fashion. right radial was prepped with chloroprep then draped in the usual sterile fashion. Patient's family unavailable. Equipment: 6F - Radial. Cardiac Cath Pack. ACIST Manifold Kit Model BT 2000. Heparinized Saline (2 units/mL), 1000 mL bag. Baseline sample Acquired. HR: 58 BPM. Physician arrived. Physician scrubbed in. Immediate Pre-Procedure Time Out. Correct Patient: Yes; Correct Procedure: Yes; Correct Site: Yes; Correct Patient Position: Yes; Correct Supplies: Yes; Dried Flammable Prep: Yes; Blood Products Available: N/A;. Lidocaine 1% infiltrated to the right radial. Arterial access obtained. A 5 vietnamese Bola catheter in over wire. Multiple views taken of left coronary artery. Catheter redirected to the RCA. Multiple views taken of right coronary artery. Physician review of cine films. Catheter attached to heparnized Saline flush at KVO to maintain patency. Catheter removed over the exchange wire. 6 vietnamese XB 3 guide catheter was inserted over the wire. Runthrough guidewire was advanced through the guide catheter to lesion in the prox LAD. Inflation number : 1 A AB MINI TREK 2.00X12 RX BALLOON was prepped and advanced across the Prox LAD , then inflated to 12 DEBBIE for 0:13 seconds. Inflation number: 2 The AB MINI TREK 2.00X12 RX BALLOON was reinflated across the Prox LAD, to 12 DEBBIE for 0:11 seconds. Balloon out. Inflation Number : 3 Majo Coopre JOSE 2.75X12 ELISA -Lot Number# _[id number] EXP: 06/12/2027 was prepped and advanced across the Prox LAD. The stent was deployed at 12 DEBBIE for 0:14 seconds. Stent balloon out over wire. The second Runthrough inserted to diagonal. Balloon inserted to lesion in the diaganol. Inflation number : 1 A AB MINI TREK 2.00X8 RX BALLOON was prepped and advanced across the 1st Diag , then inflated to 12 DEBBIE for 0:17 seconds. Inflation number: 2 The AB MINI TREK 2.00X8 RX BALLOON was reinflated across the 1st Diag, to 8 DEBBIE for 0:10 seconds. Results checked. Balloon out. Balloon inserted to lesion in the prox LAD. Balloon out. Wire removed from the Diag. 3.0x8mm NC Balloon inserted to lesion in the prox LAD. Balloon out. 3.0x8mm Trek Balloon inserted to lesion in the prox LAD. Balloon out. The second Runthrough wire inserted. 3.0x8mm NC Balloon inserted to lesion in the prox LAD. Inflation number : 4 A MDT NC EUPHORA RX [id number] BALLOON was prepped and advanced across the Prox LAD , then inflated to 12 DEBBIE for 0:22 seconds. Inflation number: 5 The MDT NC EUPHORA RX 3.88O76IH BALLOON was reinflated across the Prox LAD, to 12 DEBBIE for 0:11 seconds. Balloon out. ACT drawn. Results out of range high seconds. Therapeutic limits - pre-heparin administration 90-150 seconds and monitoring heparin during a vascular procedure >250 seconds. Results checked. Wire redirected to the Ramus. Inflation number : 1 A AB MINI TREK 2.00X12 RX BALLOON was prepped and advanced across the Ramus , then inflated to 12 DEBBIE for 0:19 seconds. Inflation number: 2 The AB MINI TREK 2.00X12 RX BALLOON was reinflated across the Ramus, to 12 DEBBIE for 0:12 seconds. Balloon out. Results checked. Wires out. ACT drawn. Results out of range high seconds. Therapeutic limits - pre-heparin administration 90-150 seconds and monitoring heparin during a vascular procedure >250 seconds. Guide catheter out. 6 vietnamese JR 4 guide catheter was inserted over the wire. Runthrough guidewire was advanced through the guide catheter to lesion in the mid RCA. Inflation number : 1 A AB TREK 2.50X15 RX BALLOON was prepped and advanced across the Mid RCA , then inflated to 12 DEBBIE for 0:19 seconds. Inflation number: 2 The AB TREK 2.50X15 RX BALLOON was reinflated across the Mid RCA, to 14 DEBBIE for 0:13 seconds. Balloon out. Stent inserted to lesion in the mid RCA. Undeployed stent out OTW. Guideliner inserted. Wendy Ferguson RT(R) was relieved by Araseli Humphrey RN, CUFFER as monitoring person. Inflation Number : 3 A MDT R JOSE 3.0X22 ELISA -Lot Number# [id number] Exp. was prepped and advanced across the Mid RCA. The stent was deployed at 12 DEBBIE for 0:21 seconds. Stent balloon out over wire. Ritu Castillo RN, in to relieve Levi Balderas RN as network account manager. Inflation number : 4 A MDT NC EUPHORA RX 3.62C12FD BALLOON was prepped and advanced across the Mid RCA , then inflated to 12 DEBBIE for 0:23 seconds. Inflation number: 5 The MDT NC EUPHORA RX 3.18X31ZC BALLOON was reinflated across the Mid RCA, to 10 DEBBIE for 0:19 seconds. Balloon out. Guideliner and wire out. ACT drawn. Results out of range HI. Will redraw. Guide catheter out. Dr. Qiu scrubbed out. A TR Band was successful obtaining hemostatsis at the Right Radial artery insertion site. Post Procedure: Pulses reassessed and unchanged. PERRLA. Strong, equal hand financial services auditor bilaterally. No VTE prophylaxis required. Medication's Wasted: Lidocaine 1% = 18 mL. Medication's Wasted: Nitro = 49.6 mg. ACT drawn. Results 364 seconds. Therapeutic limits - pre-heparin administration 90-150 seconds and monitoring heparin during a vascular procedure >250 seconds. Medication's Wasted: Heparin = 4000 units. Total IV fluids: 90 mL. PCI Indication: CAD (without ischemic symptoms). Post-op diagnosis: ELISA x 1 to the Proximal LAD, POBA of the Ramus, ELISA x 1 to the Mid RCA. Complications: none. Estimated blood loss: 5mL-10mL. Responsiveness - Normal response to verbal stimuli; alert and oriented, PERRLA. Airway - Unaffected, no intervention required; spontaneous ventilation. Circulation: W/N/L, pulses unchanged. Nausea/Vomiting: No. Vital chart was stopped. Procedure completed. Patient transferred by wheelchair to 1st floor. Access Site Site: Right Radial artery Sheath Size: 6 Fr Hemostasis Method: TR Band Hemostasis Success: Successful Procedure Medications Start: 12:12 PM Stop: 12:12 PM Medication: Benadryl Amount: 25 mg Route: I.V. Start: 12:13 PM Stop: 12:13 PM Medication: Fentanyl Amount: 50 mcg Route: I.V. Start: 12:19 PM Stop: 12:19 PM Medication: Versed Amount: 1 mg Route: I.V. Start: 12:26 PM Stop: 12:26 PM Medication: Versed Amount: 1 mg Route: I.V. Start: 12:28 PM Stop: 12:28 PM Medication: Nitrogylcerin Amount: 200 mcg Route: I.A. Start: 12:30 PM Stop: 12:30 PM Medication: Heparin Amount: 5000 units Route: I.V. Start: 12:38 PM Stop: 12:38 PM Medication: Versed Amount: 1 mg Route: I.V. Start: 12:47 PM Stop: 12:47 PM Medication: Heparin Amount: 7000 units Route: I.V. Start: 12:51 PM Stop: 12:51 PM Medication: Versed Amount: 1 mg Route: I.V. Start: 1:02 PM Stop: 1:02 PM Medication: Fentanyl Amount: 25 mcg Route: I.V. Start: 1:04 PM Stop: 1:04 PM Medication: Versed Amount: 1 mg Route: I.V. Start: 1:16 PM Stop: 1:16 PM Medication: Nitrogylcerin Amount: 200 mcg Route: I.A. Start: 1:30 PM Stop: 1:30 PM Medication: Versed 1 mg and Fentanyl 25 mcg Amount: 1 Route: I.V. Start: 1:50 PM Stop: 1:50 PM Medication: Zofran (ondansetron) Amount: 4 mg Route: I.V. Start: 1:58 PM Stop: 1:58 PM Medication: Brilinta Amount: 180 mg Route: P.O. Start: 2:05 PM Stop: 2:05 PM Medication: Aspirin Amount: 325 mg Route: P.O. I, the attending physician, have reviewed and verified all procedure medications. Yes, all medications given per verbal order History/Risk Factors Hypertension: No Dyslipidemia: No Peripheral Arterial Disease (PAD): No Myocardial Infarction (OK): No Obesity: No Renal Disease: No Tobacco Use: Former Prior Interventions PCI: No CABG: No Valve Surgery: No Report Signatures Finalized by Zurdo Qiu MD on 07/09/2025 08:11 PM
--- NOTE | 2025-06-24 12:20 | W.PM.OPSFHP ---
Same Day Surgery H&P Indication for Procedure/HPI DATE OF PROCEDURE: June 24, 2025 CHIEF COMPLAINT/INDICATIONFOR SURGICAL PROCEDURE: Chest pain/abnormal stress test PREOP DIAGNOSIS: Chest pain/abnormal stress test PLANNED PROCEDURE: Operation Date: 06/24/25 07:00 Proposed Procedures p Cardiac Catheterization - [facility] w/wo LV & Coros(Left) - Zurdo Qiu MD 69-year-old male with worsening of shortness of breath chest pain underwent stress test which turned out positive in the inferior full lateral wall it is a reason patient has been brought in today for left heart catheter Medications/Allergies* Home Medications ?Medication ?Instructions ?Recorded ?Confirmed ?Type albuterol sulfate 2.5 mg/3 mL 2.5 mg inhalation Q4H PRN 05/12/20 06/23/25 History (0.083 %) solution for nebulization Shortness Of Breath albuterol sulfate 90 mcg/actuation 2 puff inhalation Q6H PRN 05/12/20 06/23/25 History aerosol inhaler (ProAir HFA) Shortness Of Breath alprazolam 1 mg tablet (Xanax) 1 mg PO BID PRN Anxiety 05/12/20 06/23/25 History aripiprazole 5 mg tablet (Abilify) 5 mg PO DAILY 05/12/20 06/24/25 History bupropion HCl 150 mg tablet,12 hr 150 mg PO BID 05/12/20 06/24/25 History sustained-release (Wellbutrin SR) cetirizine 10 mg tablet (Zyrtec) 10 mg PO DAILY 05/12/20 06/24/25 History ipratropium bromide 0.02 % 0.5 mg inhalation Q6H 05/12/20 06/23/25 History solution for inhalation lisinopril 10 mg tablet (Prinivil) 10 mg PO DAILY 05/12/20 06/24/25 History tamsulosin 0.4 mg capsule 0.8 mg PO DAILY 02/02/22 06/24/25 History budesonide 0.5 mg/2 mL suspension 0.5 mg inhalation BID 05/23/25 06/24/25 History for nebulization fluticasone 232 mcg-salmeterol 14 1 inh inhalation DAILY 05/23/25 06/24/25 History mcg/actuation breath activated powdr oxycodone 30 mg tablet 15 mg PO .FIVE TIMES DAILY PRN Pain 05/23/25 06/24/25 History pantoprazole 20 mg tablet,delayed 20 mg PO DAILY PRN GERD 05/23/25 06/23/25 History release (Protonix) sildenafil 50 mg tablet (Viagra) 50 mg PO DAILY PRN Sexual Activity 05/23/25 06/23/25 History Allergies/Adverse Reactions Allergy/AdvReac Type Severity Reaction Status Date / Time aspirin Allergy Severe ADR-Cramping Verified 06/24/25 06:38 of the Muscles Current Medications: Generic Name Dose Route Start Last Admin Trade Name Freq PRN Reason Stop Dose Admin Sodium Chloride 1,000 mls @ 50 mls/hr 06/24/25 06:00 06/24/25 06:15 Sodium Chloride 0.9% IV 06/25/25 01:59 Not Given .Q20H ONE Pertinent History/Comorbid Conditions* Medical History (Updated 06/09/25 @ 20:36 by Ana María Ross) Cocaine abuse in remission Cannabis dependence, in remission Alcohol dependence, in remission Nicotine dependence, cigarettes, in remission Post-traumatic stress disorder, chronic Lung mass COPD (chronic obstructive pulmonary disease) Family History (Updated 05/12/20 @ 13:25 by Vero Chatman LPN) Hypertension Stroke Grandmother Social History Smoking and tobacco/nicotine status: former use of tobacco/nicotine (QUIT 2017) Quit status (tobacco/nicotine): has quit using Year quit tobacco: 2017 - 2 PPD x 50 Years Second hand smoke exposure: No Alcohol intake: never Substance/Drug Use: never Lives independently: Yes Household members: spouse Marital status: Current occupational status: retired and disabled Do you think of yourself as: Straight/Heterosexual Current gender identity: Male Pertinent Exam Findings alert, oriented x 3, clear to auscultation bilaterally, regular rate & rhythm, operative site marked and procedure specific exam findings Conscious Sedation Assessment PATIENT ASSESSED PRIOR TO SEDATION, WITH NO CHANGE NOTED: Yes AIRWAY EVAL/ANESTHESIA PLAN: ASA II, Risks, benefits & alternatives of sedation and/or procedure discussed and Patient agrees to continue as planned Recommendations Risks and benefits of procedure reviewed Surgery/Procedure today Other Plans: Patient has been explained all risk-benefit and alternative for the procedure. Patient understand 2% risk of stroke major bleed. Patient understand 5% risk of minor bleeding oozing infection hematoma pseudoaneurysm contrast induced nephropathy urgent emergent vascular or bypass surgery. Patient agrees to it and would like to proceed with it Coding Level of Care Code Acute Code for Chg Fwd
--- NOTE | 2025-06-24 14:10 | P.PCN_ITS ---
Procedure Note: Date of procedure: 06/24/25 Pre-procedure diagnosis: Abnormal stress test Post-procedure diagnosis: same Procedure: Left heart cath/PCI Left main : Small caliber but no significant disease LAD moderate caliber with proximal eccentric high-grade stenosis Ramus intermedius small caliber around 2 mm vessel with proximal high-grade 90% stenosis RCA moderate to large caliber vessel with mid eccentric moderate to high-grade s tenosis it is the area where the stress test is positive Left circumflex is nondominant small caliber vessel without significant disease A lot of dampening were noted at the engagement of left main. PCI to proximal LAD and balloon angioplasty to jailed diagonal 1 with excellent radiographic result. Jailed diagonal was balloon angioplasty. Percutaneous angioplasty of the proximal to mid ramus intermedius as it is a small caliber vessel and we got good result with balloon angioplasty therefore we did not place a stent. PCI to mid RCA with drug-eluting stent, lot of dampening and ST changes were noted. Drug-eluting stent was postdilated with a noncompliant balloon. Excellent angiographic result with STEVE-3 flow was noted in all the vessels. No complication. Plan: Patient says that he has upset stomach with aspirin therefore he cannot continue long-term. I would therefore load him with 180 mg of Brilinta and aspirin 325 mg today. He will be using 90 mg of Brilinta twice a day along with 81 mg of aspirin for 1 month along with Protonix. After 1 month we will continue Brilinta as a monotherapy. Continue home meds. Patient is intolerant to statin. Radial band as per protocol IV fluid 100 mL/h for the next 10 hours Possible discharge tomorrow Full note to be dictated Coding Level of Care Code Acute Code for Devendra Mitchell
--- NOTE | 2025-06-24 14:31 | PC.NURSE ---
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
--- NOTE | 2025-06-24 14:58 | PC.NURSE ---
Patient had personal clothes, shoes, gold wedding ring and gold (heavy link type) necklace.
[2025-06-24] MEDS: HYDROcodone-acetaminophen 5-325 mg Tablet 1 TAB PO (17:40)
--- NOTE | 2025-06-24 21:23 | PC.NURSE ---
TR band removal: Air was released from patient's TR band 2mL at a time at the following times - 2003 2017 2029 2044 2100 At 210 TR band was removed and dressing was applied. Slight oozing was seen at puncture site, no hematoma formation noted. Site reassessed at 2119, no bleeding noted.
[2025-06-25] VITALS (45 sets, daily range): BP systolic 102–152; BP diastolic 59–75; PULSE 49–68; RESP 12–26; TEMP 36.6–37; O2SAT 91–97; BMI 26.9
[2025-06-25] MEDS: HYDROcodone-acetaminophen 5-325 mg Tablet 1 TAB PO (00:05)
[2025-06-25 04:05] LABS: Hematocrit 38.6 % (37-53); Hemoglobin 12.70 g/dL (11.27-16.99); Mean Corpuscular HGB Conc 32.9 g/dL (30-55); Mean Corpuscular Hemoglobin 29.0 pg (27-33); Mean Corpuscular Volume 88.1 fl (82-101); Nucleated Red Blood Cells % 0 %; Platelet Count 165 10^3/cmm (157-399); Red Blood Count 4.38 10^6/uL (3.85-5.65); White Blood Count 6.14 10^3/uL (3.29-11.43)
[2025-06-25 04:27] LABS: Anion Gap 14.2 (5-19); Blood Urea Nitrogen 19 mg/dL (8-23); Calcium 8.7 mg/dL (8.5-10.5); Carbon Dioxide 24 mmol/L (22-29); Chloride 108 mmol/L (98-107); Creatinine Clr Calc Pharmacy 80.8796; Glucose 94 mg/dL (65-115); Osmolality Calculated 296 mOsm/kg (285-295); Potassium 4.2 mmol/L (3.5-5.1); Sodium 142 mmol/L (136-145)
--- NOTE | 2025-06-25 09:11 | P.DS_ITS ---
<Statement entered by Jean Davenport M.D - 06/28/25 10:15> Patient was cared for in conjunction with an advanced practice practitioner.? I reviewed the chart and all pertinent data including imaging, telemetry, and laboratory results.? I discussed the patient in detail with the advanced practice practitioner.? Please see?their note for discharge note, testing results and agreed upon plan of care for the patient. Discharge Providers Date of Admission: 06/24/25 Date of Discharge: June 25, 2025 Attending Provider at Admission: Dr Qiu Attending Provider at Discharge: Dr Davenport Primary Care Provider: Nisha Ventura DO Reason for Visit Reason for Visit: R94.39 Brief History: Irineo Marques is a 69-year-old male past medical history of CAD, COPD, quit smoking 8 years ago. He had been experiencing chest pain, had an abnormal stress test in April revealing ischemia in the basal to distal inferior and inferolateral wall. Coronary angiography was advised. Hospital Course Hospital Course He was brought yesterday for coronary angiogram: Significant stenosis of the LAD, ramus intermedius, RCA. The left circumflex did not have significant disease. He underwent PCI of the proximal LAD with balloon angioplasty to the jailed diagonal 1. Angioplasty of the proximal to mid ramus intermedius performed, since it was a small caliber vessel stent was not placed. Also treated with PCI of the mid RCA. He has had stomach upset with aspirin in the past, we have counseled that he requires aspirin for the first month then may proceed with Brilinta monotherapy 90 mg twice a day thereafter. This was sent to the pharmacy and requested meds to beds. We have discussed with him the importance of taking the medications as prescribed without missing any doses. He has done well overnight, no complications with right radial cath site, no ch est pain. There was some oozing around the site yesterday however none today and no hematoma is present. Dressing will be changed prior to discharge so that patient is able to be aware of any new oozing. Lifting restriction was discussed. He has statin intolerance. Can discuss Repatha as an outpatient. We also discussed any doses of Viagra that he may take by 12 hours from any sublingual nitroglycerin should he have any chest pain. Follow-up in the cardiology clinic in 2 weeks. Physical Exam Const: COMMON NORMALS: no acute distress and patient oriented x3 GENERAL APPEARANCE: cooperative ORIENTATION/CONSCIOUSNESS: Yes awake, Yes oriented to person, Yes oriented to place and Yes oriented to time Chest: COMMONS NORMALS: normal inspection of the chest and normal palpation of entire chest wall CHEST: Yes Symmetrical chest wall rise Resp: COMMON NORMALS: normal respiratory effort, No retractions, No use of accessory muscles and clear to auscultation bilaterally AUSCULTATION: clear to auscultation bilaterally Cardio: COMMON NORMALS: regular rate, regular rhythm, S1 normal heart sound present, S2 normal heart sound present, No gallops present (Cardio), No clicks present (Cardio), No murmurs present (Cardio) and No rub (Cardio) RATE: regular rate RHYTHM: regular rhythm HEART SOUNDS: S1 normal heart sound present and S2 normal heart sound present PERIPHERAL PULSES: radial pulses present positive right 2+ and femoral pulses present positive right 2+ Neuro: COMMON NORMALS: patient oriented x3 and moves all extremities SENSORIUM/ORIENTATION: Yes oriented to person, Yes oriented to place and Yes oriented to time Skin: WOUNDS: Yes surgical site (no hematoma palpable) Details: no odor Discharge Data Studies Completed and Pending Pending at discharge Category Date Time Status [employer]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 Routine Exams 06/24/25 06:00 Taken Laboratory Results WBC 6.14 10^3/uL (3.29-11.43) 06/25/25 03:21 RBC 4.38 10^6/uL (3.85-5.65) 06/25/25 03:21 Hgb 12.70 g/dL (11.27-16.99) 06/25/25 03:21 Hct 38.6 % (37-53) 06/25/25 03:21 MCV 88.1 fl (82-101) 06/25/25 03:21 MCH 29.0 pg (27-33) 06/25/25 03:21 MCHC 32.9 g/dL (30-55) 06/25/25 03:21 RDW 13.4 % (12.1-15.1) 06/25/25 03:21 Plt Count 165 10^3/cmm (157-399) 06/25/25 03:21 MPV 10.6 fL (7.4-10.4) H 06/25/25 03:21 Neut % (Auto) 67.7 % 06/25/25 03:21 Lymph % (Auto) 16.9 % 06/25/25 03:21 Kimble % (Auto) 9.6 % 06/25/25 03:21 Eos % (Auto) 4.6 % 06/25/25 03:21 Baso % (Auto) 0.7 % 06/25/25 03:21 Neut # (Auto) 4.16 10^3/uL (1.8-7.7) 06/25/25 03:21 Lymph # (Auto) 1.0 10^3/uL (0.8-4.8) 06/25/25 03:21 Kimble # (Auto) 0.6 10^3/uL (0.2-0.9) 06/25/25 03:21 Eos # (Auto) 0.3 10^3/uL (0.0-0.8) 06/25/25 03:21 Baso # (Auto) 0.0 10^3/uL (0.0-0.1) 06/25/25 03:21 Nucleated RBC % (auto) 0 % 06/25/25 03:21 Nucleated RBCs # 0.0 /100WBC 06/25/25 03:21 Sodium 142 mmol/L (136-145) 06/25/25 03:21 Potassium 4.2 mmol/L (3.5-5.1) 06/25/25 03:21 Chloride 108 mmol/L (98-107) H 06/25/25 03:21 Carbon Dioxide 24 mmol/L (22-29) 06/25/25 03:21 Anion Gap 14.2 (5-19) 06/25/25 03:21 BUN 19 mg/dL (8-23) 06/25/25 03:21 Creatinine 0.9 mg/dL (0.7-1.2) 06/25/25 03:21 GFR Calculation 83.9 mL/min (90-130) L 06/25/25 03:21 Glucose 94 mg/dL (65-115) 06/25/25 03:21 Calculated Osmolality 296 mOsm/kg (285-295) H 06/25/25 03:21 Calcium 8.7 mg/dL (8.5-10.5) 06/25/25 03:21 Vitals Last Vital Signs Temp 98.1 F 06/25/25 07:33 Pulse 53 L 06/25/25 07:33 Resp 19 H 06/25/25 07:33 BP 115/64 06/25/25 07:33 Pulse Ox 93 06/25/25 07:33 O2 Del Method Room Air 06/25/25 04:45 Discharge Plan Discharge Patient Disposition: Home Prescriptions: New aspirin 81 mg Tablet,Delayed Release (Dr/Ec) 81 mg PO DAILY Qty: 30 0RF pantoprazole 40 mg Tablet,Delayed Release (Dr/Ec) 40 mg PO DAILY Qty: 30 0RF Continued albuterol sulfate [ProAir HFA] 90 mcg/actuation HFA aerosol inhaler 2 puff INHALATION Q6H PRN (Reason: Shortness Of Breath) alprazolam [Xanax] 1 mg tablet 1 mg PO BID PRN (Reason: Anxiety) bupropion HCl [Wellbutrin SR] 150 mg tablet sustained-release 12 hr 150 mg PO BID cetirizine [Zyrtec] 10 mg tablet 10 mg PO DAILY lisinopril [Prinivil] 10 mg tablet 10 mg PO DAILY aripiprazole [Abilify] 5 mg tablet 5 mg PO DAILY albuterol sulfate 2.5 mg /3 mL (0.083 %) solution for nebulization 2.5 mg INHALATION Q4H PRN (Reason: Shortness Of Breath) ipratropium bromide 0.02 % solution 0.5 mg INHALATION Q6H tamsulosin 0.4 mg capsule 0.8 mg PO DAILY sildenafil [Viagra] 50 mg tablet 50 mg PO DAILY PRN (Reason: Sexual Activity) Rx Instructions: administer 30 minutes to 4 hours before activity budesonide 0.5 mg/2 mL suspension for nebulization 0.5 mg inhalation BID oxycodone 30 mg tablet 15 mg PO .FIVE TIMES DAILY PRN (Reason: Pain) fluticasone propion-salmeterol 232-14 mcg/actuation aerosol powdr breath activated 1 inh inhalation DAILY nitroglycerin 0.4 mg tablet, sublingual 0.4 mg sublingual Q5M PRN (Reason: chest pain) Qty: 25 2RF Rx Instructions: do not exceed 3 doses per episode Held pantoprazole [Protonix] 20 mg tablet,delayed release (DR/EC) 20 mg PO DAILY PRN (Reason: GERD) Hold Instructions: Discuss with primary doctor Discharge Order = DC NOW: Discharge Order (Routine); Ordered 06/25/25 Ordered By: Mallika Galaviz Referrals: Zurdo Qiu MD [Physician, Cardiology] - 07/03/25 3:00 pm Nisha Ventura DO [Primary Care Provider, Family Practice] - 06/30/25 9:20 am Referral Note: Follow-up Danial is with Teetee Sharma in the [facility]. Please arrive at 9:05 with your hospital discharge papers. Diet: Cardiac Activity: Increase activity as tolerated Patient Instructions: Aspirin (By mouth), Pantoprazole (By mouth), Chest Pain (DC), Coronary Angioplasty (DC), Post Angiogram Home Care Instructions Activity Restrictions/Additional Instructions: No lifting with right arm for 4 days. ?If bleeding is noticed at right wrist site, hold pressure over site with fingers for 10 minutes. If still bleeding after 10 minutes, return to ER.May take nitroglycerin under the tongue for chest pressure lasting over 5 minutes, up to 3 doses. If still having chest pain, call 911. Do not take Viagra if requiring nitroglycerin.? Print Language: Yi Discharge Date/Time: 06/25/25 10:47 Discharge Attestations Time Spent in Discharge Care*: less than 30 min Quality Metrics Clinical Quality Measures [ No reported AMI, CVA or VTE this stay] Coding Level of Care Code Acute Code for Chg [email or web address]
== END 2025-06-25 10:47 | disposition home or self-care (01) ==
LOC: CCL 05:38 → CSU 14:02
PROVIDERS: Internal Medicine; PCP Family Medicine; Visit Provider Internal Medicine Cardiovascular Disease
DX: I25.118 Atherosclerotic heart disease of native coronary artery with other forms of angina pectoris (principal); Z87.891 Personal history of nicotine dependence; K21.9 Gastro-esophageal reflux disease without esophagitis; Z79.891 Long term (current) use of opiate analgesic; J44.9 Chronic obstructive pulmonary disease, unspecified; F43.12 Post-traumatic stress disorder, chronic
CPT/HCPCS: 36415; 80048; 85025; 85347; 92920; 92921; 93454; 96374; 99152; 99153; C1725; C1769; C1874; C1887; C1894; C9600; J1200; J1644; J2250; J2405; J3010; J3490; J7030; J9999; Q0163; Q9967

== ENCOUNTER → 2025-07-03 14:23 | Outpatient (BNVA) | payer MEDICARE, MEDICAID, SELFPAY | PROVIDERS: PCP Family Medicine; Visit Provider Internal Medicine Cardiovascular Disease | DX: I25.10 Atherosclerotic heart disease of native coronary artery without angina pectoris (principal); Z98.61 Coronary angioplasty status; I25.2 Old myocardial infarction | CPT/HCPCS: 99214 ==